=== PATIENT | male | born 1930 | race Caucasian/White ===

== ENCOUNTER 2020-05-28 18:25 | Inpatient (IN) | payer OTHER ==
--- OUTSIDE RECORDS SUMMARY | 2020-05-28 18:27 | XMS REPORT | Clinical Summary ---
:1930 Author Organization [facility] Address [address] [place] [address] Care Team Providers Name Role Phone MD Jayjay Primary Care Provider Allergies No Known Active Allergies Medications Medication Sig Dispensed Refills Start Date End Date Status atorvastatin Take 20 mg by 0 Act chanel (LIPITOR) 20 MG mouth nightly. tablet doxazosin Take 4 mg by 0 Active (CARDURA) 4 MG mouth. tablet warfarin Take 5 mg by 0 Active (COUMADIN) 5 MG mouth daily. tablet allopurinol allopurinol 300 mg tablet 0 Active (ZYLOPRIM) 300 MG Take 1 tablet every day by oral route nightly tablet turmeric-herbal Take 1 capsule by 0 Active complex no.278 mouth 2 (two) 150 mg capsule times a day. oxybutynin XL Take 1 tablet by 30 tablet 0 04/24/2020 Active (DITROPAN-XL) 5 mouth once daily MG 24 hr tablet Toviaz 4 mg Take 1 tablet by 30 tablet 0 05/28/2020 Active tablet extended mouth once daily release 24 hr furosemide Take 40 mg by 0 Disco ntinued (LASIX) 40 mg mouth daily. Pt 0 tablet takes occasionally TOVIAZ 4 mg TAKE 1 TABLET BY 30 tablet 6 04/20/2019 Discontinued tablet extended MOUTH ONCE DAILY 0 release 24 hr acetaminophen-cod Take 1-2 tablets 30 tablet 0 05/31/201905/29 eine (TYLENOL by mouth every 6 9 WITH CODEINE #3) (six) hours as 300-30 mg per needed for tabletIndications moderate pain for : acute pain up to 30 doses .Acute Pain. docusate sodium Take 1 capsule 30 capsule 0 05/31/2019 01 (COLACE) 100 MG (100 mg total) by 9 capsule mouth 2 (two) times a day for 15 days. azithromycin Take 1 tablet 6 tablet 0 01/18/2020 Ex pired (ZITHROMAX) 250 (250 mg total) by 0 MG mouth daily for 4 tabletIndications days. Take first : Pneumonia due 2 tablets to infectious together, then 1 organism, every day until unspecified finished. laterality, unspecified part of lung sulfamethoxazole- Take 1 tablet by 10 tablet 0 03/14/202002/28 trimethoprim mouth 2 (two) 0 (Bactrim DS) times a day for 5 800-160 mg per days. tablet docusate sodium Take 1 capsule 60 capsule 0 03/14/2020 02 (Colace) 100 MG (100 mg total) by 0 capsule mouth 2 (two) times a day for 30 days. oxybutynin XL Take 1 tablet (5 30 tablet 0 03/14/2020 04/13/20 2 (Ditropan XL) 5 mg total) by 0 MG 24 hr tablet mouth daily for 30 days. traMADoL (ULTRAM) Take 1 tablet (50 15 tablet 0 03/14/2020 50 mg mg total) by 0 tabletIndications mouth every 8 : acute pain (eight) hours as needed for moderate pain for up to 7 days .acute pain. Active Problems Problem Noted Date Sebaceous cyst 10/08/2016 Chest pain 09/19/2016 Coronary artery disease involving [place] coronary krishna ry 09/19/2016 Essential hypertension 09/19/2016 Dyslipidemia 09/19/2016 Encounters Date Type Specialty Care Team Description 05/25/2020 Refill Urology Terri Grimaldo MD 04/24/2020 Refill Urology Berna Nicole MD 03/14/2020 Anesthesia Event Urology Zach Mon MD Everitt, Amanda W., OPAL 03/14/2020 Surgery Urology Berna Nicole, CYSTOSCOPY R IGHT RETROGRADE PYEL OGRAM AND RIGHT STENT EXCHANGE 03/14/2020 Hospital Encounter Urology Berna Nicole MD 03/14/2020 Telephone Urology Myrna Kramer MA 03/09/2020 Pre-Admit Testing Pre-Admission Berna Nicole, Pre-op testing Appointment Testing (Primary Dx) 03/09/2020 Travel 03/09/2020 Telephone Urology Berna Nicole MD 03/02/2020 Telephone Consult Urology Berna Nicole, Uretero pelvic junction (UPJ) obstruction, right (Primary Dx); Hydronephrosis of right kidney 02/28/2020 Travel 02/27/2020 Telephone Urology Berna Nicole MD 01/18/2020 Emergency Emergency Tu, Yen-Te Pneumonia due t o infectious organism, unspecified laterality, unspecified part of lung (Primary Dx); Medicine MD Chintan Flank pain 01/18/2020 Travel 05/31/2019 Anesthesia Event Urology Onofre Gallo MD Delaflor-Santaa na, Miriam, NP 05/31/2019 Surgery Urology Berna Nicole, CYSTOSCOPY, RIGHT MD RETROGRADE FIDENCIO OGRAM, RIGHT STENT EXC HANGE 05/31/2019 Hospital Encounter Urology Berna Nicole MD 05/30/2019 Telephone Urology Berna Nicole MD after 05/28/2019 Surgical History Surgery Date Site/Laterality Comments ESOPHAGOGASTRODUODENOSCOPY N/A Proce dure: (EGD) 7 ESOPHAGOGASTRODU ODENOSCOPY (EGD); Surgeon: Elan Menard MD; Lo cation: [facility]; Serv ice: Gastroenterology ; Laterality: N/A; CARDIAC CATHETERIZATION Right Procedur e: Cv selective 7 coronary angiogr aphy; Surgeon: Silver Traylor MD; Location: [facility] Lab Invasive Locatio n; Service: Cardiovascular; Laterality: Right; STENT 06/29/2000 cardiac x 1 - 06/28/20 01 ROTATOR CUFF REPAIR 06/29/2013 Right - 06/28/20 14 CYSTO STENT INSERTION 02/04/2018 Right Procedure: CYSTO RIGHT RGP AND RIGHT STENT INSE RTION; Surgeon: Berna Nicole MD; Location: [facility]; Service: Urology ; Laterality: Right; Medical devices from this surgery are in t he Implants section. CYSTOSCOPY, WITH URETERAL STENT 11/04/19 Right RPG REPLACEMENT 19 CYSTOSCOPY, WITH RETROGRADE 11/03/2018 Right Proc edure: CYSTO, RIGHT PYELOGRAM, WITH ULTRASONIC OR RE TROGRADE PYELOGRAM, RIGHT ELECTROHYDRAULIC LITHOTRIPSY KIMBERLY NT EXCHANGE; Surgeon: Berna Nicole MD; Location: [facility] MAIN OR; Se rvice: Urology; Latera lity: Right; Medical devices from this surgery are in t he Implants section. CYSTOSCOPY, WITH URETERAL STENT Right Procedure: CYSTOSCOPY, RIGHT REPLACEMENT 9 RETROGRADE PYLEO GRAM, RIGHT STENT EXCHANGE; Surgeon: Berna Nicole MD; Location: [facility] MAIN OR; Se rvice: Urology; Latera lity: Right; Medical devices from this surgery are in t he Implants section. COLONOSCOPY 06/29/2011 - 06/28/20 12 CYSTOSCOPY Right Procedure: CYSTO SCOPY RIGHT 0 RETROGRADE PYELO GRAM AND RIGHT STENT EXCHANGE; Surgeon: Berna Nicole MD; Location: [facility] MA[facility] OR; Se rvice: Urology; Latera lity: Right; Medical devices from this surgery are in t he Implants section. Medical History Medical History Date Comments Hypertension Anesthesia nhap/nfhap - all elisabeth th secure Exercises daily light weights and tr eadmill - no cp/sob Anemia resolved since 2016 Coronary artery disease one heart stent - 2000 History of transfusion 08/2016 no reactions Chronic kidney disease Renal insufficiency Peptic ulceration 08/2016 Arthritis mild - in fingers Arrhythmia afib, diagnosed arou nd 2008. Myocardial infarction (HCC) [address] aced Hearing loss Atrial fibrillation (HCC) Social History Tobacco Use Types Packs/Day Years Used Date Never Smoker Smokeless Tobacco: Never Used Alcohol Use Drinks/Week oz/Week Comments No Alcohol Habits Answer Date Recorded How often do you have a drink containing alcohol? Never 01/18/2020 How many drinks containing alcohol do you have on a typical Not asked day when you are drinking? How often do you have six or more drinks on one occasion? No t asked Sex Assigned at Date Recorded Not on file Last Filed Vital Signs Vital Sign Reading Time Taken Comments Blood Pressure 149/67 03/14/2020 12:14 PM CDT Pulse 61 03/14/2020 12:14 PM CDT Temperature 36.4 C (97.6 F) 03/14/2020 12:14 PM CDT Respiratory Rate 18 03/14/2020 12:14 PM CDT Oxygen Saturation 100% 03/14/2020 12:14 PM CDT Inhaled Oxygen Concentration - - Weight 74.8 kg (165 lb) 03/14/2020 8:43 AM CDT Height 172.7 cm (5' 8") 03/14/2020 8:43 AM CDT Body Mass Index 25.09 03/14/2020 8:43 AM CDT Plan of Treatment Health Maintenance Due Date Last Done Comments SHINGLES VACCINES (#1) 09/04/1981 65+ PNEUMOCOCCAL VACCINE (1 of 1 - PPSV23) 09/04/199606/29 INFLUENZA VACCINE 01/28/2020 Implants Implanted Type Area Daily Release And Dupe Printer Device Shelf Model / Identifier Expiration Serial / Date Lot Stent Uretl Filifm Dbl Pigtl 6fr 26cm Tiny Blk - [id number] Surgi ricardo Right: [facility] 09/30/2020 [id number] / Implanted: 02/04/2018 at [facility] (Quantity not on file) Stents N/A / [id number] Stent Uretl Filifm Dbl Pigtl 6fr 26cm Tiny Blk - [id number] Surgi ricardo N/A: [facility] 09/02/2021 [id number] / Implanted: Qty: 1 on 11/03/2018 by Berna Nicole MD at [facility] Stents N/A / [id number] Stent Uretl Filifm Dbl Pigtl 6fr 26cm Tiny Blk - [id number] Surgi ricardo N/A: [facility] 04/04/2022 [id number] / Implanted: Qty: 1 on 05/31/2019 by Berna Nicole MD at [facility] Stents N/A / [id number] Stent Uretl Filifm Dbl Pigtl 6fr 26cm Tiny Blk - [id number] Surgi ricardo Right: [facility] 09/29/2022 [id number] / Implanted: Qty: 1 on 03/14/2020 by Berna Nicole MD at [facility] Stents N/A / [id number] Catheter Uretrl Flxble Tip Open Ended Flexima 5fr 70cm - Log [id number] Urological N/A: [facility] [place] [place] [facility] 04/28/2022 [id number] / Implanted: 05/31/2019 at [facility] (Quantity not on file) Implants or N/A / Sets [id number] Procedures Procedure Name Priority Date/Time Associated Diagnosis Comme nts FL RENAL STENTOGRAM Routine 03/14/2020 11:20 Resu lts for this AM CDT procedure are i n the results section. WI AN ELECTIVE Routine 03/14/2020 10:46 Results f or this SUPRAGLOTTIC AIRWAY AM CDT procedur e are in the results section. CYSTOSCOPY 03/14/2020 10:19 Unspecified AM CDT hydronephrosis Case Notes DR COMING FROM RM 1, EST 30 MINS Special Needs REQ TF SELF, EST 30 MINS ECG PRE/POST OP Routine 03/09/2020 11:33 Pre-op testing Result s for this AM CDT procedure are i n the results section. URINE CULTURE Routine 03/09/2020 11:20 Results fo r this AM CDT procedure are i n the results section. COVID-19 QUALITATIVE Routine 03/09/2020 11:18 Pre-op testing R esults for this PCR AM CDT procedure are i n the results section. ESTIMATED GFR Routine 03/09/2020 11:16 Results fo r this AM CDT procedure are i n the results section. URINALYSIS SCREEN AND Routine 03/09/2020 11:16 Pre-op testing Results for this MICROSCOPY, WITH AM CDT procedure a re in REFLEX TO CULTURE the result s section. PROTHROMBIN TIME WITH Routine 03/09/2020 11:16 Pre-op testing Results for this INR AM CDT procedure are i n the results section. PARTIAL THROMBOPLASTIN Routine 03/09/2020 11:16 Pre-op testing Results for this TIME (PTT) AM CDT procedure are i n the results section. COMPREHENSIVE Routine 03/09/2020 11:16 Pre-op testing Results for this METABOLIC PANEL AM CDT procedure ar e in the results section. HC COMPLETE BLD COUNT Routine 03/09/2020 11:16 Pre-op testing Results for this W/AUTO DIFF AM CDT procedure are i n the results section. URINALYSIS SCREEN AND Routine 01/18/2020 12:45 Re sults for this MICROSCOPY, WITH PM CDT procedure a re in REFLEX TO CULTURE the result s section. URINE CULTURE Routine 01/18/2020 12:45 Results fo r this PM CDT procedure are i n the results section. CT CHEST WO CONTRAST STAT 01/18/2020 10:55 Res ults for this AM CDT procedure are i n the results section. ESTIMATED GFR STAT 01/18/2020 10:12 Results fo r this AM CDT procedure are i n the results section. COMPREHENSIVE STAT 01/18/2020 10:12 Results fo r this METABOLIC PANEL AM CDT procedure ar e in the results section. HC COMPLETE BLD COUNT STAT 01/18/2020 10:12 Re sults for this W/AUTO DIFF AM CDT procedure are i n the results section. CT RENAL STONE STAT 01/18/2020 10:07 Results f or this PROTOCOL AM CDT procedure are i n the results section. FL RENAL STENTOGRAM Routine 05/31/2019 9:30 Resu lts for this AM [facility] procedure are i n the results section. WI AN ELECTIVE Routine 05/31/2019 9:12 Results f or this SUPRAGLOTTIC AIRWAY AM [facility] procedur e are in the results section. 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 after 05/28/2019 Results FL Renal Stentogram (03/14/2020 11:20 AM CDT)Only the most recent of2 results within the time period is included. Specimen Narrative Performed At IMPRESSION: C-arm Fluoroscopy under 1 hour was provi ded in the OR for [facility] the referring physician. A radiologist was not prese nt during the procedure. Refer to the Operative report issued by the performing provider for procedure details. Procedure Note Hm Interface, Radiology Results Incoming - 03/14/2020 3:33 PM CDT IMPRESSION: C-arm Fluoroscopy under 1 h our was provided in the OR for the referring physician. A radiologist was not presen t during the procedure. Refer to the Operative report issued by the performin g provider for procedure details. Performing Organization Address City/State/ZIP Code Phon e Number [facility] [address] [place] [address] Airway (03/14/2020 10:46 AM CDT) Narrative Performed At Camryn Martinez 03/14/2020 10:46 AM Airway Date/Time: 03/14/2020 10:30 AM Performed by: Camryn Martinez Authorized by: Zach Mon MD Location: OR Urgency: Elective Difficult Airway: No Resident/AUTOMATIC BANDSAW TENDER/AA: Camryn Martinez Performed by: resident/AUTOMATIC BANDSAW TENDER/AA Preoxygenated with 100% O2: Yes C-spine Precautions Maintained Throughou t: No Mask Ventilation: Not attempted Final Airway Type: Supraglottic airway Final LMA: I-Gel LMA Size: 5 Number of Attempts at Approach: 1 Patient preoxygenated, eyes taped after induction, iGel 4inserted atraumatically with all soft tissue and dentition inta ct. iGel positioning verified, positive EtCO2, adequate Vt, a nd secured in place with silk tape. ECG Pre/Post Op (03/09/2020 11:33 AM CDT) Pathologist Sig nature Ventricular rate 57 [facility] Atrial rate 80 [facility] QRSD interval 146 [facility] QT interval 500 [facility] QTC interval 486 [facility] QRS axis 1 82 [facility] T wave axis 18 [facility] EKG impression Atrial fibrillation [facility] M[facility] with slow ventricular response-Right bundle branch block-Abnormal ECG-In automated comparison with ECG of 19-MAY-2019 11:49,-No significant change was found- Specimen Narrative Performed At This result has an attachment that is no t available. Performing Organization Address City/[facility]/ZIP Code Phon e Number [facility] [address] [place] [phone] Urine culture (03/09/2020 11:20 AM CDT)Only the most recent of2 resultswithin the time period is included. Pathologist [facility] nature Urine culture SEE COMMENTComment: [facility] Bacteriuria [facility] negative. Specimen Performing Organization Address City/[facility] Phon e Number [facility] DEPARTMENT OF PATHOLOGY AND [address] [place] [phone] GENOMIC MEDICINE [address] [address] COVID-19 qualitative PCR (03/09/2020 11:18 AM CDT) Interpretation Negative results do not prec lude 2019-nCoV infection and should not be used as the sole basis for treatment or other patient management decisions. Negative results must be combined with clinical observations, patient history, and epidemiological [facility]ISCO information. [facility] COVID-19 qualitative Not-Detected Not-Detecte FRISCO PCR result d [facility] COVID-19 qualitative See link below for FRISCO PCR PDF Lab [facility] ReportComment: Case HOSPITAL Number: [id number] Specimen Nasopharyngeal swab Performing Organization Address City/[facility] Phon e Number [facility] DEPARTMENT OF PATHOLOGY AND [address] [phone] [address] [facility] Urinalysis screen and microscopy, with reflex to culture (03/09/2020 11:16 AM CDT)Only the most recent of2 resultswithin the time period is included. Pathologist Sig nature Specimen site Clean catch [facility] Color, UA Straw [facility] Appearance, UA Clear [facility] Specific gravity, 1.014 1.001 - 1.035 [facility] pH, UA 6.0 5.0 - 8.5 [facility] Protein, UA Negative Negative [facility] Glucose, UA Negative Negative [facility] Ketones, UA Negative Negative [facility] Bilirubin, UA Negative Negative [facility] Blood, UA Large (A) Negative [facility] Nitrite, UA Negative Negative [facility] Urobilinogen, UA <2.0 <2.0 [facility] Leukocyte esterase, Negative Negative [facility] WBC, UA 1 0 - 1 /HPF [facility] RBC, UA 70 (H) 0 - 5 /HPF [facility] Bacteria, UA None seen None seen [facility] Yeast, UA None seen [facility] Yeast with None seen [facility] pseudohyphae, UA HOSPITAL Specimen Urine Performing Organization Address City/[facility] Phon e Number [facility] DEPARTMENT OF PATHOLOGY AND [address] [phone] [address] Estimated GFR (03/09/2020 11:16 AM CDT)Only the most recent of2 resultswithin the time period is included. Estimated GFR 25 (A) mL/min/1.73 [facility] Comment: m2 HOSPITAL Catergory Units Interpretation G1 >=90 Normal or high G2 60-89 Mildly decreased G3a 45-59 Mildly to moderately decreas ed G3b 30-44 Moderately to severely decre ased G4 15-29 Severely decreased G5 <15 Kidney failure The eGFR was calculated using the Chronic Kidney Disea se Epidemiology Collaboration (CKD-EPI) equation. Interpretation is based on recommendations of the National Kidney Foundation-Kidney Disease Outcomes Shad lity Initiative (NKF-KDOQI) published in 2014. Specimen Performing Organization Address City/[facility] Phon e Number [facility] DEPARTMENT OF PATHOLOGY AND [address] [place] [address] [phone] [address] Partial thromboplastin time, activated (03/09/2020 11:16 AM CDT) Pathologist [facility] PTT 38.6 (H) 23.0 - 36.0 [facility] Comment: [facility] PTT therapeutic range for unfractionated heparin is 61.0-112.0 seconds which corresponds to Anti-Xa 0.3-0.7 U/ml. Specimen Blood Performing Organization Address [facility] Phon e Number [facility] DEPARTMENT OF PATHOLOGY AND [address] [place] [address] [address] Prothrombin time with INR (03/09/2020 11:16 AM CDT) Pathologist [facility] Prothrombin time 24.4 (H) 11.5 - 14.5 [facility] INR 2.2 [facility] Comment: ROSALIND The International Normalized Ratio (INR) is a therapeu [facility] HOSPITAL monitoring tool for patients who are stable on oral anticoagulant therapy. An INR of 2.0-3.0 is suggested for deep vein thrombosis/pulmonary embolism. Specimen Blood Performing Organization Address City/[facility] Phon e Number [facility] DEPARTMENT OF PATHOLOGY AND [address] [place] [phone] CBC with platelet and differential (03/09/2020 11:16 AM CDT)Only the most recent of2 resultswithin the time period is included. Pathologist [facility] WBC 4.73 4.50 - 11.00 [facility] k/uL [facility] RBC 4.10 (L) 4.40 - 6.00 [facility] m/[facility] HGB 13.3 (L) 14.0 - 18.0 [facility] g/dL [facility] HCT 41.8 41.0 - 51.0 % [facility] MCV 102.0 (H) 82.0 - 100.0 [facility] MCH 32.4 27.0 - 34.0 pg [facility] MCHC 31.8 31.0 - 37.0 [facility] g/dL [facility] RDW - SD 52.6 37.0 - 55.0 fL [facility] MPV 11.8 8.8 - 13.2 [facility] Platelet count 110 (L) 150 - 400 k/uL [facility] Nucleated RBC 0.00 /100 WBC [facility] Neutrophils 69.8 (H) 39.0 - 69.0 % [facility] Lymphocytes 18.2 (L) 25.0 - 45.0 % [facility] Monocytes 7.0 0.0 - 10.0 % [facility] Eosinophils 3.8 0.0 - 5.0 % [facility] Basophils 0.8 0.0 - 1.0 % [facility] Immature granulocytes 0.4Comment: 0.0 - 1.0 % [facility] "[facility] granulocytes" (promyelocytes , myelocytes, metamyelocytes ) Specimen Blood Performing Organization Address City/State/[facility] Code Phon e Number [facility] DEPARTMENT OF PATHOLOGY AND [address], [place] [phone] GENOMIC MEDICINE [address] [address] Comprehensive metabolic panel (03/09/2020 11:16 AM CDT)Only the most recent of2 resultswithin the time period is included. Sodium 141 135 - 148 [facility] mEq/L [facility] Potassium 5.2 (H) 3.5 - 5.0 [facility] mEq/L [facility] Chloride 105 98 - 112 [facility] mEq/L [facility] CO2 24 24 - 31 mEq/L [facility] Anion gap 12@ANIO 7 - 15 mEq/L [facility] BUN 39 (H) 8 - 23 mg/dL [facility] Creatinine 2.24 (H) 0.70 - 1.20 [facility] mg/dL [facility] Glucose 100 (H) 65 - 99 mg/dL [facility] Calcium 9.3 8.8 - 10.2 [facility] mg/dL [facility] Protein 7.3 6.3 - 8.3 [facility] Comment: g/dL [facility] [place] 4.6-7.0 g/dL 1 week 4.4-7.6 g/dL 7 months-1year 5.1-7.3 g/dL 1-2 years 5.6-7.5 g/dL >3 years 6.0-8.0 g/dL 18-150 6.3-8.3 g/dL Albumin 4.1 3.5 - 5.0 [facility] g/dL HOSPITAL A/G ratio 1.3 0.7 - 3.8 [facility] Alkaline phosphatase 115 40 - 129 U/L [facility] AST 47 10 - 50 U/L [facility] ALT 43 5 - 50 U/L [facility] Total bilirubin 0.8 0.0 - 1.2 [facility] mg/dL HOSPITAL Specimen Blood Performing Organization Address City/State/ZIP Code Phon e Number [facility] DEPARTMENT OF PATHOLOGY AND [address], [place] [phone] GENOMIC MEDICINE [facility] [address] [place] [address] CT Chest Wo Contrast (01/18/2020 10:55 AM CDT) Specimen Narrative Performed At EXAMINATION: CT CHEST WO CONTRAST [facility] CLINICAL HISTORY: sob TECHNIQUE: Axial images of the chest were obtained w ithout intravenous contrast. The lack of intravenous contrast reduces the sensitivity of the exam and evaluating vasculature. CT imaging was pe rformed with iterative reconstruction technique and/o r automated exposure control to reduce rad iation dose. COMPARISON: Limited comparison with chest radiograph from May 19, 2019 FINDINGS: Lungs and airways: There is airspace disease in the ri ght lower lobe. Minimal scarring with a few foci of cylindrical bronch iectasis in the lower lungs. A few benign granulomas are noted. Pleura: There may be trace right pleural fluid adjacen t to the airspace disease. No pneumothorax. Mediastinum and lymph nodes: Prominent mediastinal and hilar lymph nodes, for example subcarinal node measuring up to 1.2 cm, favored to be reactive. Cardiovascular: Four-chamber cardiomegaly. Heavy coron marko artery and additional scattered vascular calcifications, includin g mitral annular and aortic valve leaflets. Upper abdomen: Calcified hepatic and spl enic granulomas. Musculoskeletal: Spondylosis. Deminerali zed bones. IMPRESSION: 1.Right lower lobe airspace disease, compatible with p neumonia. This distribution is atypical for COVID-19 pneumonia, and m ore typical of community acquired bacterial pneumonia. 2.Four-chamber cardiomegaly. Heavy coron marko artery calcifications. [facility]-[id number] Procedure Note Interface, Radiology Results Incoming - 01/18/2020 11:32 AM CDT EXAMINATION: CT CHEST WO CONTRAST CLINICAL HISTORY: sob TECHNIQUE: Axial images of the chest we re obtained without intravenous contrast. The lack of intravenous contrast reduces the sensitivity of the exam and evaluating vasculature. CT imaging was performed with iterative reconstruction technique and/or automated exposure control to reduce rad iation dose. COMPARISON: Limited comparison with [facility] radiograph from May 19, 2019 FINDINGS: Lungs and airways: There is airspace dis ease in the right lower lobe. Minimal scarring with a few foci of cylindrical bronchiectasis in the lower lungs. A few benign granulomas are noted. Pleura: There may be trace right pleural fluid adjacent to the airspace disease. No pneumothorax. Mediastinum and lymph nodes: Prominent m ediastinal and hilar lymph nodes, for example subcarinal node measuring up to 1.2 cm, favored to be reactive. Cardiovascular: Four-chamber cardiomegal y. Heavy coronary artery and additional scattered vascular calcifications, including mitral annular and aortic valve leaflets. Upper abdomen: Calcified hepatic and spl enic granulomas. Musculoskeletal: Spondylosis. Deminerali zed bones. IMPRESSION: 1.Right lower lobe airspace disease, com patible with pneumonia. This distribution is atypical for COVID-19 pneumonia, and more typical of community acquired bacterial pneumonia. 2.Four-chamber cardiomegaly. Heavy coron marko artery calcifications. [id number] Performing Organization Address City/State/ZIP Code Phon e Number [facility] [address] [place] [address] CT Renal Stone Protocol (01/18/2020 10:07 AM CDT) Specimen Narrative Performed At EXAMINATION: [facility]: flank pain COMPARISON: 01/11/2018. TECHNIQUE: CT of the abdomen and pelvis without intr avenous contrast. Absence of contrast decreases sensitivity for detectio n of focal lesions and vascular pathology. All CT scan performed using radiation dose reduction t echniques. Technical factors are evaluated and adjusted to ensure appropriate moderation of exposure. Automated dose feed management advisor nology is applied to adjust the radiation dose to minimize expose while achieving a diagnostic quality i mage. FINDINGS: LUNG BASES: Bibasilar posterior subpleural consolidati on with surrounding groundglass opacity is seen. HEPATOBILIARY: Limited evaluation of the liver is unre markable. No intrahepatic biliary dilatation is seen. GALLBLADDER: No gallstones are seen. No wall thickenin g or pericholecystic fluid collection is iden tified. SPLEEN: Limited nonenhanced evaluation of the spleen i s unremarkable. No splenomegaly. PANCREAS: Limited nonenhanced evaluation of the pancre as is unremarkable. No ductal dilation is se en. ADRENALS: The adrenal glands are unremar kable. KIDNEYS: A right double-J ureteral stent is seen, new when compared to prior study. Mild residual right hydronephrosis is pre sent, markedly improved in the interim. No renal calculus is seen. Th ere is no evidence of left hydronephrosis. Limited nonenhanced evaluation of the kidneys ot herwise unremarkable. PERITONEUM/RETROPERITONEUM: No mesenteric or retroperi toneal pathologic adenopathy is seen. No free air is seen. GI TRACT: The small bowel demonstrates no wall thicken ing or dilatation. Scattered diverticula are seen predominantly the sigmo id colon. The colon is otherwise unremarkable. No wall thickening is identified. There is no evidence of inflammatory process. Appendix is not seen.. No right low quadrant inflammat ion is seen. The stomach is unremarkable. BONES: An approximately 6 mm degenerative anterolisthe sis L4 on L5 is again noted. VASCULATURE: Scattered atherosclerotic disease is seen of the abdominal aorta. PELVIS: BLADDER: The urinary bladder is unremark able. GENITALIA: Limited evaluation of the prostate gland an d seminal vesicle is unremarkable. . FLUID: None. IMPRESSION: Satisfactory right double-J ureteral stent placement w ith mild residual right hydronephrosis, markedly improved in the interim. No CT evidence of renal calculus. Mild diverticulosis without evidence of acute divertic ulitis. No CT evidence of gastroenteritis or small bow el obstruction. Incidental note of right basilar subpleural consolidat ion and groundglass opacity, suggestive of pneumonia/pneumonit is. Aspiration pneumonia is also a consideration. Recom mend clinical correlation. [id number] Procedure Note Hm Interface, Radiology Results Incoming - 01/18/2020 10:25 AM CDT EXAMINATION: CT RENAL STONE PROTOCOL CLINICAL HISTORY: flank pain COMPARISON: 01/11/2018. TECHNIQUE: CT of the abdomen and pelvis without intravenous contrast. Absence of contrast decreases sensitivity for detection of focal lesions and vascular pathology. All CT scan performed using radiation do se reduction techniques. Technical factors are evaluated and adjusted to ensure appropriate moderation of exposure. Automated dose management technology is applied to adjust the radiation dose to minimize expose while achieving a diagnostic quality im age. FINDINGS: LUNG BASES: Bibasilar posterior subpleur al consolidation with surrounding groundglass opacity is seen. HEPATOBILIARY: Limited evaluation of the liver is unremarkable. No intrahepatic biliary dilatation is seen. GALLBLADDER: No gallstones are seen. No wall thickening or pericholecystic fluid collection is identified. SPLEEN: Limited nonenhanced evaluation o f the spleen is unremarkable. No splenomegaly. PANCREAS: Limited nonenhanced evaluation of the pancreas is unremarkable. No ductal dilation is seen. ADRENALS: The adrenal glands are unremar kable. KIDNEYS: A right double-J ureteral stent is seen, new when compared to prior study. Mild residual right hydronephrosis is present, markedly improved in the interim. No renal calculus is seen. There is no evidence of left hydronephrosis. Limited nonenhanced evaluation of the kidneys ot herwise unremarkable. PERITONEUM/RETROPERITONEUM: No mesenteri c or retroperitoneal pathologic adenopathy is seen. No free air is seen. GI TRACT: The small bowel demonstrates n o wall thickening or dilatation. Scattered diverticula are seen predominantly the sigmoid colon. The colon is otherwise unremarkable. No wall thickening is identified. There is no evidence of inflammatory process. Appendix is not seen.. No right low quad rant inflammation is seen. The stomach is unremarkable. BONES: An approximately 6 mm degenerativ e anterolisthesis L4 on L5 is again noted. VASCULATURE: Scattered atherosclerotic d isease is seen of the abdominal aorta. PELVIS: BLADDER: The urinary bladder is unremark able. GENITALIA: Limited evaluation of the [place] gland and seminal vesicle is unremarkable. . FLUID: None. IMPRESSION: Satisfactory right double-J ureteral kimberly nt placement with mild residual right hydronephrosis, markedly improved in the interim. No CT evidence of renal calculus. Mild diverticulosis without evidence of acute diverticulitis. No CT evidence of gastroenteritis or small bowel obstruction. Incidental note of right basilar subpleu ral consolidation and groundglass opacity, suggestive of pneumonia/pneumonitis. Aspiration pneumonia is also a consideration. Recommend clinical correlation. [id number] Performing Organization Address City/State/ZIP Code Phon e Number [facility] [address] [place] [address] Airway (05/31/2019 9:12 AM SPONGE BUFFER) Narrative Performed At Jess Tejeda CRNA 05/31/2019 9:12 AM Airway Date/Time: 05/31/2019 9:12 AM Performed by: Jess Tejeda CRNA Authorized by: Onofre Gallo MD Location: OR Urgency: Elective Difficult Airway: No Preoxygenated with 100% O2: Yes C-spine Precautions Maintained Throughou t: Yes Mask Ventilation: Not attempted Final Airway Type: Supraglottic airway Final LMA: I-Gel LMA Size: 5 Number of Attempts at Approach: 1 iGel #5 placed by ER Resident Good. [employer] Prothrombin time with INR, I-Stat (05/31/2019 8:01 AM SPONGE BUFFER) POC prothrombin 17.3 (H) 11.0 - 14.5 FRISCO time [facility] POC INR 1.5 FRISCO Comment: [facility] International Normalized Ratio (INR) is a [facility] monitoring tool for patients who are stable on oral vitamin K antagonist therapy. An INR of 2.0-3.0 is sug gested for deep vein thrombosis/pulmonary embolism. An INR of 2.5-3.5 (high dose) is suggested for some pa tients with mechanical heart valves) Meter ID: [id number] Mental Health Associate: Charissa Contreras Specimen Blood Performing Organization Address City/State/ZIP Code Phon e Number [facility] DEPARTMENT OF PATHOLOGY AND [address] [place], [place] [address] [facility] [address] [place] [address] after 05/28/2019 Advance Directives For more information, please contact: [phone] Type Date Recorded Patient News Broadcaster Explanati on Advance Directives, 01/11/2018 7:19 AM Living Will and Medical Power of Chemist [employer] Advance Directives, 02/09/2018 12:10 PM Living Will and Medical Power of Chemist [employer] Advance Directives, 02/09/2018 12:10 PM Living Will and Medical Power of [employer]ist [employer] Code Status Date Activated Date Inactivated Comments Full Code 09/19/2016 10:32 PM 09/25/2016 9:26 PM Code Status decision reached by: Patient
--- OUTSIDE RECORDS SUMMARY | 2020-05-28 18:28 | XMS REPORT | Summary of Care ---
:1930 Author Organization [facility] - Health Address [address] [place] [address] Care Team Providers Name Role Phone MD Jayjay Primary Care Provider Encounter Details Date Type Department Care Team Description 04/09/2020 Orders Only [facility] Doctor Unassigned, No [address] [facility] [place] [address] [address] [place] [address] Allergies No Known Allergiesdocumented as of this encounter (statuses as of 04/09/2020) Medications No known medicationsdocumented as of this encounter (statuses as of 04/09/2020) Active Problems Problem Noted Date Chest pain 09/19/2016 GI bleed 09/15/2016 documented as of this encounter (statuses as of 04/09/2020) Social History Tobacco Use Types Packs/Day Years Used Date Never Smoker Smokeless Tobacco: Never Used Sex Assigned at Date Recorded Not on file documented as of this encounter Last Filed Vital Signs Not on filedocumented in this encounter Plan of Treatment Date Type Specialty Care Team Description 04/09/2020 Fire Pot Operator Visit Phlebotomy Pob, [facility] Lab Main documented as of this encounter Procedures Procedure Name Priority Date/Time Associated Diagnosis Comme nts ASSIGNMENT OF BENEFITS Routine 04/09/2020 8:36 AM CDT documented in this encounter Results Not on filedocumented in this encounter Insurance Payer Benefit Plan / Subscriber ID Effective Dates Phone Addre ss Type Group SELECT CARE OF SELECT [place]ARE OF [id number] 2015-[place]se [place] [id number] 2019-Presen Medicare Adv PLUS PLUS CHOICE t HMO/POS documented as of this encounter
--- OUTSIDE RECORDS SUMMARY | 2020-05-28 18:28 | XMS REPORT | Summary of Care ---
:1930 Author Organization [facility] Address [address] [place] [id number] Care Team Providers Name Role Phone MD Jayjay Primary Care Provider Reason for Visit Reason Comments LAB WORK Auth/Cert Status Reason Specialty Diagnoses / Procedures Referred By Lauri booth Referred To Contact Phlebotomy Procedures Adc Pob Lab Draw CMP Professional O ffice Building [address] [place] [address] eliana [address], [address] [place] [address] Phone: Fax: Encounter Details Date Type Department Care Team Description 04/09/2020 Laboratory Tester Visit [facility] Wilfred Hampton, DO [address] [place] [address] Chronic kidney disease, stage IV (severe ) (Primary Dx); Professional Office Pob, Adc Lab Main Other proteinuria; Building Phlebotomy Acidosis ; Lab Hyperpotassemia; Professional Office Renal hy pertension; Building Impaired fasting glucose; [address] [facility] [address] [place] [address] Allergies No Known Allergiesdocumented as of this [...] Assigned at Date Recorded Not on file COVID-19 Exposure Response Date Recorded In the last month, have you been in contact with No / Unsure 04/09/2020 8:38 AM CDT someone who was confirmed or suspected to have Coronavirus / COVID-19? documented as of this encounter Last Filed Vital Signs Not on filedocumented in this encounter Nursing Notes Alix Be - 04/09/2020 8:45 AM CDT Venipuncture collection performed by clean technique on the left anticubitus. Total of 1 attempts were made. Slight pressure and a bandage/dressing were applied to the site(s). The patient experienced no complications. The following specimens were processed according to instructions and sent to [facility] laboratories per lab order on today: LT BLUE SST 1 RED LAV 2 PPT DK GREEN (LiHep) DK GREEN (SodH) [place] DK BLUE (K2) DK BLUE (S) ACD Blood Culture NIPT/NTD Patient has been identified by and name and was provided with cup, antiseptic towelette, and clean catch instructions. 2 urine specimen(s) sent. Unpreserved 2 Urine Culture Aptima tube Other urine documented in this encounter Plan of Treatment Name Type Priority Associated Diagnoses Date/Ti me MICROALBUMIN URINE LAB Routine Chronic kidney disease , 04/09/2020 8:54 AM CDT stage IV (severe ) Other proteinuri a Acidosis Hyperpotassemia Renal hypertensi on Impaired fasting glucose Avitaminosis D Name Type Priority Associated Diagnoses Order S chedule MICROALBUMIN URINE LAB Routine Chronic kidney disease , Expected: 04/09/2020, stage IV (severe ) Expires: 04/09/2021 Other proteinuri a Acidosis Hyperpotassemia Renal hypertensi on Impaired fasting glucose Avitaminosis D Health Maintenance Due Date Last Done Comments Depression Screening 1942 DTaP,Tdap,and Td Vaccines (1 - Tdap) 09/04/1950 Zoster Recombinant Vaccine (SHINGRIX) (1 of 2) 09/04/1981 PNEUMOCOCCAL VACCINES 65+ (1 of 1 - PPSV23) 09/04/1996 INFLUENZA VACCINE (#1) 2020 documented as of this encounter Procedures Procedure Name Priority Date/Time Associated Comments Diagnosis URINALYSIS Routine 04/09/2020 8:54 Chronic kidney Results f or this AM CDT disease, stage IV procedure are in (severe) the results Other proteinuri a section. Acidosis Hyperpotassemia Renal hypertensi on Impaired fasting glucose Avitaminosis D GLYCOSYLATED Routine 04/09/2020 8:54 Chronic kidney Results f or this HEMOGLOBIN (A1C) AM CDT disease, stage IV proced ure are in (severe) the results Other proteinuri a section. Acidosis Hyperpotassemia Renal hypertensi on Impaired fasting glucose Avitaminosis D CBC WITH DIFF Routine 04/09/2020 8:54 Chronic kidney Results for this AM CDT disease, stage IV procedure are in (severe) the results Other proteinuri a section. Acidosis Hyperpotassemia Renal hypertensi on Impaired fasting glucose Avitaminosis D COMP. METABOLIC PANEL Routine 04/09/2020 8:54 Chronic kidney Results for this (22611) AM CDT disease, stage IV procedure are in (severe) the results Other proteinuri a section. Acidosis Hyperpotassemia Renal hypertensi on Impaired fasting glucose Avitaminosis D MAGNESIUM Routine 04/09/2020 8:54 Chronic kidney Results f or this AM CDT disease, stage IV procedure are in (severe) the results Other proteinuri a section. Acidosis Hyperpotassemia Renal hypertensi on Impaired fasting glucose Avitaminosis D URIC ACID Routine 04/09/2020 8:54 Chronic kidney Results f or this AM CDT disease, stage IV procedure are in (severe) the results Other proteinuri a section. Acidosis Hyperpotassemia Renal hypertensi on Impaired fasting glucose Avitaminosis D PHOSPHORUS Routine 04/09/2020 8:54 Chronic kidney Results f or this AM CDT disease, stage IV procedure are in (severe) the results Other proteinuri a section. Acidosis Hyperpotassemia Renal hypertensi on Impaired fasting glucose Avitaminosis D documented in this encounter Results URINALYSIS (04/09/2020 8:54 AM CDT) Pathologist Sig nature APPEARANCE Hazy (A) Clear [facility] COLOR Yellow Yellow [facility] PH 5.0 4.8 - 8.0 [facility] SP GRAVITY 1.015 1.003 - 1.030 [facility] GLU U QUAL Normal Normal [facility] BLOOD 3+ (A) Negative [facility] KETONES Negative Negative [facility] PROTEIN 30 mg/dL (A) Negative [facility] UROBILIN Normal Normal [facility] BILIRUBIN Negative Negative [facility] NITRITE Negative Negative [facility] LEUK SUSHIL 250/uL (A) Negative [facility] RBC/HPF >182 (H) 0 - [address] [facility] WBC/HPF 10 (H) 0 - [address] [facility] BACTERIA Few (A) Negative [facility] MUCOUS Slight (A) Negative LPF [facility] SQ EPITH <[address] [facility] Specimen Urine - URINE, CLEAN CATCH Performing Organization Address [facility] Phone Number [facility] CLIA: [id number] [place] [address] URIC ACID (04/09/2020 8:54 AM CDT) Pathologist Sig nature URIC ACID 7.4 3.6 - 8.0 mg/dL [facility] Specimen Blood Performing Organization Address [facility] Phone Number [facility] CLIA: [id number] [place] [address] PHOSPHORUS (04/09/2020 8:54 AM CDT) Pathologist Sig nature PHOSPHORUS 3.3 2.5 - 5.0 mg/dL [facility] Specimen Blood Performing Organization Address [facility] Phone Number [facility] CLIA: [id number] [place] [address] MAGNESIUM (04/09/2020 8:54 AM CDT) Pathologist Sig nature MAGNESIUM 1.9 1.7 - 2.4 mg/dL [facility] Specimen Blood Performing Organization Address [facility] Phone Number [facility] CLIA: [id number] [place], [place] [address] LABORATORY [address] GLYCOSYLATED HEMOGLOBIN (A1C) (04/09/2020 8:54 AM CDT) Pathologist Sig nature HGB A1C 5.4 4.0 - 6.0 % [facility] Specimen Blood Narrative Performed At %A1C (NGSP) Interpretation (ADA) [facility] 4.8-5.6 Normal or (Non-Diabetic Ra nge) 5.7-6.4 Increased Risk (Pre-Diabet ic) >6.5 Diabetes Indicated Performing Organization Address City/State/Zipcode Phone Number [facility] CLIA: [id number] [place] [address] COMP. METABOLIC PANEL (88456) (04/09/2020 8:54 AM CDT) NA 140 135 - 145 [facility] mmol/L [facility] K 4.6 3.5 - 5.0 [facility] mmol/L [facility] CL 107 98 - 108 mmol/L [facility] CO2 TOTAL 23 23 - 31 mmol/L [facility] AGAP 10 2 - 16 [facility] BUN 50 (H) 7 - 23 mg/dL [facility] GLUCOSE 96 70 - 110 mg/dL [facility] CREATININE 2.22 (H) 0.60 - 1.25 [facility] mg/dL [facility] TOTAL BILI 0.8 0.1 - 1.1 mg/dL [facility] CALCIUM 9.3 8.6 - 10.6 [facility] mg/dL [facility] T PROTEIN 6.4 6.3 - 8.2 g/dL [facility] ALBUMIN 3.9 3.5 - 5.0 g/dL [facility] ALK PHOS 91 34 - 122 U/L [facility] ALTv 38 5 - 50 U/L [facility] AST(SGOT) 45 (H) 13 - 40 U/L [facility] eGFR Calculation 28.1 mL/min/1.73m2 [facility] ([facility] LAB[facility]AT[facility] Tanz[place]) eGFR Calculation 34.1 mL/min/1.73m2 [facility] () [facility] Specimen Blood Narrative Performed At [facility] Glomer[facility] Fil[facility] ([facility] and Staging of Kidney Disease* + + +- + | GFR (mL/min/1.73 m2) | With Kidney Damage | Without Kidney Damage + + +- + | >90 | Stage one | Normal + + +- + | 60-89 | Stage two | Decreased GFR + + +- + | 30-59 | Stage three | Stage three + + +- + | 15-29 | Stage four | Stage four + + +- + | <15 (or dialysis) | Stage five | Stage five + + +- + *Each stage assumes the associated GFR level has been in effect for at least three months. Stages 1 to 5, with or without kidney disease, indicate chronic kidney disease. Notes: Determination of stages one and two (with eGFR >59mL/min/1.73 m2) requires estimation of kidney damage for at least three months as defined by structural or functional abnormalities of the kidney, manifested by either: Pathological abnormalities or Markers of kidney damage (including abnormalities in the composition of the blood or urine or abnormalities in imaging tests). Performing Organization Address City/State/Zipcode Phone Number [facility] CLIA: [id number] [place] [address] CBC WITH DIFF (04/09/2020 8:54 AM CDT) WBC 3.70 (L) 4.20 - 10.70 [facility] 10*3/L [facility] RBC 3.90 (L) 4.26 - 5.52 [facility] 10*6/L [facility] HGB 12.8 12.2 - 16.4 [facility] g/dL [facility] HCT 39.5 38.4 - 49.3 % [facility] MCV 101.3 (H) 81.7 - 95.6 [facility] LABORATORY MCH 32.8 (H) 26.1 - 32.7 [facility] LABORATORY MCHC 32.4 31.2 - 35.0 [facility] g/dL [facility] RDW-SD 52.4 (H) 38.5 - 51.6 [facility] LABORATORY RDW-CV 14.0 12.1 - 15.4 % [facility] PLT 123 (L) 150 - 328 [facility] 10*3/L [facility] MPV 11.4 9.8 - 13.0 [facility] LABORATORY IPF % 5.1Comment: Platelet 1.2 - 10.7 % [facility] count measured by HOSPITAL fluorescence method. LABORATORY NRBC/100 WBC 0.0 0.0 - 10.0 [facility] /100 WBCs [facility] NRBC x10^3 <0.01 10*3/L [facility] GRAN MAT (NEUT) % 60.2 % [facility] IMM GRAN % 0.00 % [facility] LYMPH % 24.1 % [facility] MONO % 9.2 % [facility] EOS % 5.4 % [facility] BASO % 1.1 % [facility] GRAN MAT 2.23 1.99 - 6.95 [facility] x10^3(ANC) 10*3/uL [facility] IMM GRAN x10^3 <0.03 0.00 - 0.06 [facility] 10*3/uL [facility] LYMPH x10^3 0.89 (L) 1.09 - 3.23 [facility] 10*3/uL [facility] MONO x10^3 0.34 (L) 0.36 - 1.02 [facility] 10*3/uL [facility] EOS x10^3 0.20 0.06 - 0.53 [facility] 10*3/uL [facility] BASO x10^3 0.04 0.01 - 0.09 [facility] 10*3/uL [facility] Specimen Blood Performing Organization Address City/State/Zipcode Phone Number [facility] CLIA: [id number] [place] [address] documented in this encounter Visit Diagnoses Diagnosis Chronic kidney disease, stage IV (severe ) - Primary Chronic kidney disease, Stage IV (severe ) Other proteinuria Acidosis Hyperpotassemia Renal hypertension Unspecified hypertensive kidney disease with chronic kidney disease stage I through stage IV, or unspecified Impaired fasting glucose Avitaminosis D Unspecified vitamin D deficiency documented in this encounter Insurance Payer Benefit Plan / Subscriber ID Effective Dates Phone Addre ss Type Group JOSH FIELD [id number] 2019-Presen Medicare Adv PLUS PLUS CHOICE t HMO/POS documented as of this encounter"
--- OUTSIDE RECORDS SUMMARY | 2020-05-28 18:28 | XMS REPORT | Encounter Summary ---
:1930 Author Care Team Providers Name Role Phone Dr. Francisco J Ro Primary Care Provider [phone] Marium Traylor MD Primary Care Provider [phone] Reason for Visit TELE-AWV Annual Wellness Visit Male Instructions 1. Advance directive discussed w ith patient advance care planning: car e instructions 2. Depression screening learning about depression 3. Chronic kidney disease stage 4 medicines to avoid with ki cameroney disease: care instructions 4. Coronary atherosclerosis 5. Atrial fibrillation 6. Gout 7. Hypercholesterolemia Discussion Note Patient denies any acute issues at this time. Patient report he see his docotrs frequently and takes his meds daily. Lif estyle modifcation discussed with patient, patient verbalized understanding. Plan of Care Patient Instructions It was good to speak with you eladia hidalgo today for your Medicare Annual Wellness Visit. You have been provided some information on healthy nutrition, including a diet rich in fruits and vegetables, minimizing simple carbohydrates, salt, and saturated fats. I want to encourage regular card iovascular exercise such as walking at [place] 30 minutes daily, 5 times per week. Please remember to schedule any prevent chanel health measures that we talked about today. You have also been provided education on fall prevention and community- based lifestyle interventions to help reduc e health risks and promote healthy livin g in your Annual Wellness folder. Screening Recommendations 1. Vaccines Pneumonia: Recommended toda y Influenza: Recommended today 2. Colorectal Cancer Screening: Colonoscopy (every 10 years) Recommended today 3. Annual Prostate Screening 4. Annual Depression Sc reening 5. Annual Alcohol Screening 6. A nnual Fall Risk Screening 7. Annual Health Risk Assessment Reminders Provider Appointments Telemedicine on or around Vannesa 09/20/2020 HALLEI Robbins Lab None recorded. Referral None recorded. Procedures None recorded. Surgeries None recorded. Imaging None recorded. Medications Name Start Date allopurinol 100 mg tablet Take 1 tablet every day by oral route. atorvastatin 40 mg tablet Take 1 tablet every day by oral route. doxazosin 4 mg tablet Take 1 tablet twice a day by oral route. Toviaz 4 mg tablet,extended release Take 1 tablet as needed by oral route. warfarin 2 mg tablet Take 1 tablet every day by oral route. warfarin 3 mg tablet Take 1 tablet every day by oral route. Medications Administered None recorded. Vitals Height Weight BMI 5 ft 8 in 165 lbs 25.1 kg/m2 Results Lab Results None recorded. Allergies Code Code System Name Reaction Severity Status Onset NKDA Problems Name Status Onset Date Source Hypercholesterolemia Active 05/29/2019 Gout Active 05/29/2019 Coronary Atherosclerosis Active 05/29/2019 Atrial Fibrillation Active 05/29/2019 Procedures None recorded. Vaccine List Vaccine Type influenza, injectable, quadrivalent 06/29/2018 pneumococcal, unspecified formulation 06/29/2018 zoster, unspecified formulation 06/29/2018 Social History Tobacco Smoking Status Never Smoker Past Encounters 03/23/2020 Advance Directive Discussed with Patient ; Depression Screening; Chronic Kidney Disease Stage 4; Coronary Atherosclerosis; Atrial Fibrillation; Gout; Hypercholesterolemia Vannesa Robbins, [employer] PROJECT MANAGER: [id number] [facility], [address], [place] [address], Ph. History of Present Illness Atrial Fibrillation Reported By: Patient HPI: Severity: mild. Alleviating Factors: medication. Aggravating Factors: worse with stress/emotional upset. Associated Symptoms: no awareness of palpitation, no dyspnea, no fatigue, no chest discomfort, no associated dizziness Stroke Risk: CHADS(2) Score: age >= 75 ye ars (1 point), CHADS(2) score is:1. [id number] Score: age >= 7 5 years (2 point), female sex (1 point), [id number] score total: 3 Mini Cog Reported By: Patient Functional Ability: Personal/Social/ 3 word reca ll: Your nurse or doctor will ask you to remember 3 words. In 5 m inutes, they will ask you to repeat them. Patient recalled 3 w ords Carotid Artery Disease Reported By: Patient HPI: Symptoms: asymptomatic, no s udden loss of vision in one eye, no transient ischemic attack, n o reversible ischemic neurologic deficit. Severity: mild. Context: non -smoker, no diabetes, no hypertension, anticoagulants Hyperlipidemia Reported By: Patient HPI: Type of hyperlipidemia: hype rcholesterolemia. Control: improving. Compliance: compliant. Compl ications: coronary artery disease, cardiovascular disease Opioid Use Assessment Reported By: Patient Opioid Use Assessment:: Current Use of Opioids : no use of opioids (no further questions required) Note: I confirm that I received verbal consent from the patient for the virtual visit.
This telemedicine encounter was performed using live {{video and audio|audio only because either patient did not have technology or unable to connect due to technical problems*}}.
<strong>(for a udio only)</strong> Total time spent with patient: {{50#| }} minutes.<div>AFib</div&gt ;<div>CAD</div><div>Gout</div><div>
</ div> Review of Systems Comprehensive General Adult ROS Reported By: Patient Constitutional: Constitutional: no fever, no night sweats, no significant weight gain, no significant weight loss, no exercise intolerance Eyes: Eyes: no dry eyes, no vision change, no irritation ENMT: Ears: no difficulty hearing, no ear pain. Nose: no frequent nosebleeds, no nose problems , no sinus problems. Mouth/Throat: no sore throat, no bleeding gums, no snoring, no dry mouth, no mouth ulcers, no oral abnorm alities, no teeth problems Cardiovascular: Cardiovascular: no chest efren n, no arm pain on exertion, no shortness of breath when wal jody, no shortness of breath when lying down, no palpitations, no known heart murmur, no lightheadedness Respiratory: Respiratory: no cough, no wh eezing, no shortness of breath, no coughing up blood, no sleep apnea Gastrointestinal: Gastrointestinal: no abdomin al pain, no nausea, no vomiting, no constipation, normal appe tite, no diarrhea, not vomiting blood, no dyspepsia, no GERD Genitourinary: Genitourinary: no incontinen ce, no difficulty urinating, no hematuria, no increased freq uency Musculoskeletal: Musculoskeletal: no muscle a ches, no muscle weakness, no arthralgias/joint pain, no b ack pain, no swelling in the extremities Integumentary: Skin: no abnormal mole, no j aundice, no rashes, no laceration Neurologic: Neurologic: no loss of consc iousness, no weakness, no numbness, no seizures, no di zziness, no migraines, no headaches, no tremor Psychiatric: Psych: no depression, no sle ep disturbances, feeling safe in a relationship, no alcohol abu se, no anxiety, no hallucinations, no suicidal thoughts Endocrine: Endocrine: no fatigue Hematologic/Lymphatic: Hematologic/Lymphatic no swo llen glands, no bruising, no excessive bleeding Allergic/Immunologic: Allergy/Immunologic: no runn y nose, no sinus pressure, no itching, no hives, no freque nt sneezing Physical Exam Telemedicine/Virtual Visit Reported By: Patient Constitutional: Level of Distress: NAD Psychiatric: Insight: good judgement. Men eliana Status: active and alert, normal mood, normal affect. Orienta tion: to time, to place, to person. Memory: recent memory normal , remote memory normal"
--- OUTSIDE RECORDS SUMMARY | 2020-05-28 18:28 | XMS REPORT | Continuity of Care Document ---
:1930 Author Organization [facility] t Address [address] [place] [address] Dr. [address] [place] [address] Care Team Providers Name Role Phone Jayjay HERRERA Primary Care Physician Re HERRERA Attending Clinician Ty HERRERA Attending Clinician Pob, Lab Main Attending Clinician Unavailable Joaquim Mon MD Attending Clinician Esther Chaney APRN Attending Clinician Williams OLIVERA Attending Clinician Unavailable Chintan Bradshaw MD Attending Clinician Mat Gallo MD Attending Clinician Karissa STERLING Attending Clinician TY Admitting Clinician Unavailable Payers Payer Name Policy Type Policy Effective Expiration Source Number Date Date TEXANPLUSTEXANPLUS [id number] 2018 Galenavis campoverde [id number] 2018-Pre 00:00:00 M ethodist sentHMO Problems Condition Condition Condition Status Onset Resolution Last Treating Co mments Source Name Details Category Date Date Treatment Clinician Date Hyperchole Hyperchole Problem Active 2018-06 [facility] sterolemia sterolemia 07-30 [facility] 00:00: Practic 00 e Gout Gout Problem Active 2018-06 [place] 2- Family 00:00: Practic 00 e Coronary Coronary Problem Active 2018-06 Werner ge atheroscle Atheroscle 2 [facility] rosis rosis 00:00: Practic 00 e Atrial Atrial Problem Active 2018-06 [facility] fibrillati Fibrillati 2 [facility] on on 00:00: 00 e Sebaceous Sebaceous Disease Active Yolanda ston cyst cyst 4-12 [facility] 00:00: st 00 Chest pain Chest pain Disease Active [place] 3-24 [facility] 00:00: st 00 Coronary Coronary Disease Active [place] artery artery 3-24 [facility] disease disease 00:00: st involving involving 00 [place] coronary coronary artery artery Essential Essential Disease Active Yolanda ston hypertensi hypertensi 324 Me thodi on on 00:00: st Dyslipidem Dyslipidem Disease Active [place] ia ia 09-19 [facility] 00:00: st 00 Allergies, Adverse Reactions, Alerts This patient has no known allergies or adverse reactions. Social History Social Habit Start Date Stop Date Quantity Comments Source History [facility] Meth odist Alcohol Std Drinks History [facility] Meth odist Alcohol Binge Sex Assigned At [facility] ethodist Tobacco use and 2020-03-16 2020-03-[address] [facility] ethodist exposure 00:00:00 00:00:00 Alcohol intake 2020-03-16 2020-03-16 Current [facility] thodist 00:00:00 00:00:00 non-drinker of alcohol (finding) History [facility] 2020-01-18 2020-01-18 1 [place] [facility] odist Alcohol Frequency 00:00:00 00:00:00 Smoking Status Start Date Stop Date Source Never smoker [place] [facility] t Medications Ordered Filled Start Stop Current Ordering Indication Dosage Frequency Signature Comments Components Source Medication Medication Date Date Medication? Clinician (SIG) Name Name Toviaz 4 mg 2019-06 Yes Take 1 [place] tablet 1-30 tablet by [facility] extended 00:00: mouth once st release 24 00 daily hr oxybutynin 2019-06 Yes Take 1 [place] XL 0-27 tablet by [facility] (DITROPAN-X 00:00: mouth once st L) 5 MG 24 00 daily hr tablet atorvastati 2019- Yes 20mg QD Take 20 mg [facility] n (LIPITOR) 9-16 by mouth Meth seamus 20 MG 18:05: nightly. st tablet 26 doxazosin 2019- Yes 4mg Take 4 mg Yolanda ston (CARDURA) 4 -16 by mouth. Met hodi MG tablet 18:05: st 26 warfarin 2019-0 Yes 5mg QD Take 5 mg [place] (COUMADIN) 03-14 by mouth Metho di 5 MG tablet 18:05: daily. st allopurinol 2019-0 Yes allopurino [facility] (ZYLOPRIM) 03-14 l 300 mg Metho di 300 MG 18:05: tablet st tablet 26 Take 1 tablet every day by oral route nightly turmeric-he 2019-0 Yes 1{capsu Q.5D Take 1 [place] rbal 03-14 le} capsule by [facility] complex 18:05: mouth 2 st no.278 150 26 (two) mg capsule times a day. docusate 2019- No 100mg Q.5D Take 1 [place] sodium 03-14 capsule [facility] (Colace) 00:00: 23:59 ([address] 100 MG 00 :00 total) by capsule mouth 2 (two) times a day for 30 days. oxybutynin 2019- No 5mg QD Take 1 [place] XL 03-14 tablet (5 [facility] (Ditropan 00:00: 23:59 mg total) st XL) 5 MG 24 00 :00 by mouth hr tablet daily for 30 days. traMADoL 2019- No acute pain 50mg Q8H Take 1 [place] (ULTRAM) 50 03-14 tablet (50 M ethodi mg tablet 00:00: 23:59 mg total) st 00 :00 by mouth every 8 (eight) hours as needed for moderate pain for up to 7 days .acute pain. sulfamethox 2020- No 1{tbl} Q.5D Take 1 [facility] azole[facility] 03-14 tablet by Me thodi thoprim 00:00: 23:[address] (Bactrim 00 :00 (two) DS) 800-160 times a mg per day for 5 tablet days. furosemide 2019- No 40mg QD Take 40 mg [facility] (LASIX) 40 03-09 by mouth Meth seamus mg tablet 11:37: 00:[address] 32 :00 takes occasional ly azithromyci 2019- 2020- No Pneumonia 250mg QD Take 1 [facility] n 01-17 due to tablet [facility] (ZITHROMAX) 00:00: 23:59 infectious ([address] 250 MG 00 :00 organism, total) by tablet unspecified mouth laterality, daily for unspecified 4 days. part of Take first lung 2 tablets together, then 1 every day until finished. docusate 2018-06- No 100mg Q.5D Take 1 [place] sodium 08-01-18 capsule [facility] (COLACE) 00:00: 23:59 ([address] 100 MG 00 :00 total) by capsule mouth 2 (two) times a day for 15 days. acetaminoph 2018-06- No acute pain 1{tbl} Q6H Take 1-2 [facility] en-codeine 08-01 12-10 tablets by Me perales (TYLENOL 00:00: 23:[address] WITH 00 :00 every 6 CODEINE #3) (six) 300-30 mg hours as per tablet needed for moderate pain for up to 30 doses .Acute Pain. TOVIAZ 4 mg 2018-06- No TAKE 1 Yolanda ston tablet 0- 11-30 TABLET BY [facility] extended 00:00: 00:[address] release 24 00 :00 DAILY hr allopurinol allopurinol No 1 Q1D allopurino [facility] 100 mg 100 mg l 100 mg Family tablet Take tablet Take tablet Practic 1 tablet 1 tablet Take 1 e every day every day tablet by oral by oral every day route. route. by oral route. atorvastati atorvastati No 1 Q1D atorvastat [facility] n 40 mg n 40 mg in 40 mg Famil y tablet Take tablet Take tablet Practic 1 tablet 1 tablet Take 1 e every day every day tablet by oral by oral every day route. route. by oral route. doxazosin 4 doxazosin 4 No 1 BID doxazosin [place] mg tablet mg tablet 4 mg Famil y Take 1 Take 1 tablet Practic tablet tablet Take 1 e twice a day twice a day tablet by oral by oral twice a route. route. day by oral route. Toviaz 4 mg Toviaz 4 mg No 1 Toviaz 4 [place] tablet,exte tablet,exte mg F amily nded nded tablet,ext Practic release release ended e Take 1 Take 1 release tablet as tablet as Take 1 needed by needed by tablet as oral route. oral route. needed by oral route. warfarin 2 warfarin 2 No 1 Q1D warfarin 2 [place] mg tablet mg tablet mg tablet Family Take 1 Take 1 Take 1 Practic tablet tablet tablet e every day every day every day by oral by oral by oral route. route. route. warfarin 3 warfarin 3 No 1 Q1D warfarin 3 [facility] mg tablet mg tablet mg tablet Family Take 1 Take 1 Take 1 Practic tablet tablet tablet e every day every day every day by oral by oral by oral route. route. route. Immunizations Ordered Immunization Filled Immunization Date Status Commen ts Source Name Name zoster, unspecified zoster, unspecified 2018-06-29 Completed [facility] formulation formulation 00:00:00 Practice pneumococcal, pneumococcal, 2018-06-29 Completed [facility] unspecified unspecified 00:00:00 Practice formulation formulation influenza, influenza, 2018-06-29 Completed [facility] injectable, injectable, 00:00:00 Practice quadrivalent quadrivalent Vital Signs Vital Name Observation Time Observation Value Comments Source Height 2020-03-23 00:00:00 68 [in_i] [facility] BMI (Body Mass 2020-03-23 00:00:00 25.1 kg/m2 [facility] Family Index) Practice Body Weight 2020-03-23 00:00:00 165 [lb_av] [facility] Systolic blood 2020-03-14 12:14:00 149 mm[Hg] [place] [facility] pressure Diastolic blood 2020-03-14 12:14:00 67 mm[Hg] [place] [facility] pressure Heart rate 2020-03-14 12:14:00 61 /min [facility] Body temperature 2020-03-14 12:14:00 36.44 Liudmila [place] [facility] Respiratory rate 2020-03-14 12:14:00 18 /min Gal[facility] Wild Oxygen saturation in 2020-03-14 12:14:00 100 /min Luke Wild Arterial blood by Pulse oximetry Body height 2020-03-14 08:43:00 172.7 cm Luke Wild Body weight 2020-03-14 08:43:00 74.844 kg Luke [facility] BMI 2020-03-14 08:43:00 25.09 kg/m2 [facility] Procedures Procedure Date / Time Performing Clinician Source Performed [place] RENAL STENTOGRAM 2020-03-14 11:20:00 Berna Nicole [place] AN ELECTIVE 2020-03-14 10:46:13 Zach Mon ethodist SUPRAGLOTTIC AIRWAY Joaquim CYSTOSCOPY 2020-03-14 10:19:00 Berna Nicole ECG PRE/POST OP 2020-03-09 11:33:05 Berna Nicole URINE CULTURE 2020-03-09 11:20:00 TyJessyBernamarjorie Jackson odist COVID-19 QUALITATIVE PCR 2020-03-09 11:18:00 Berna Nicole HC COMPLETE BLD COUNT 2020-03-09 11:16:00 Berna Nicole W/AUTO DIFF COMPREHENSIVE METABOLIC 2020-03-09 11:16:00 Berna Nicole PANEL PARTIAL THROMBOPLASTIN 2020-03-09 11:16:00 Berna Nicole on [facility] TIME (PTT) PROTHROMBIN TIME WITH INR 2020-03-09 11:16:00 Berna Nicole URINALYSIS SCREEN AND 2020-03-09 11:16:00 Berna Nicole MICROSCOPY, WITH REFLEX TO CULTURE ESTIMATED GFR 2020-03-09 11:16:00 Berna Nicole URINE CULTURE 2020-01-18 12:45:00 Tu, Michelle Wild URINALYSIS SCREEN AND 2020-01-18 12:45:00 Tu, YenNeel Wild MICROSCOPY, WITH REFLEX TO CULTURE CT CHEST WO CONTRAST 2020-01-18 10:55:35 Tu, Meche-Rickie Wild HC COMPLETE BLD COUNT 2020-01-18 10:12:00 Tu, Yen-Rickie Wild W/AUTO DIFF COMPREHENSIVE METABOLIC 2020-01-18 10:12:00 Tu, Michelle Wild PANEL ESTIMATED GFR 2020-01-18 10:12:00 Tu, Michelle Wild CT RENAL STONE PROTOCOL 2020-01-18 10:07:55 Tu, Michelle Wild FL RENAL STENTOGRAM 2019-05-31 09:30:00 Berna Nicole [place] AN ELECTIVE 2019-05-31 09:12:08 Jess Tejeda ethodist SUPRAGLOTTIC AIRWAY CYSTOSCOPY, WITH URETERAL 2019-05-31 08:55:00 Berna Nicole STENT REPLACEMENT PROTHROMBIN TIME WITH INR, 2019-05-31 08:01:00 Berna Nicole andreskiley [facility] I-STAT Plan of Care Planned Activity Planned Date Details Comments Source Future Scheduled Test 2020-01-28 INFLUENZA VACCINE Viviane andreskiley [facility] 00:00:00 [code = INFLUENZA VACCINE] Future Scheduled Test 1996-09-04 65+ PNEUMOCOCCAL Ho lili [facility] 00:00:00 VACCINE (1 of 1 - PPSV23) [code = 65+ PNEUMOCOCCAL VACCINE (1 of 1 - PPSV23)] Future Scheduled Test 1981-09-04 SHINGLES VACCINES ariel [facility] 00:00:00 (#1) [code = SHINGLES VACCINES (#1)] Future Appointment 2020-09-20 Vannesa العلي, [facility] ill[facility] Family 00:00:00 Kei Blake; [address] [address], [place] [address] [facility] Encounters Start End Encounter Admission Attending Care Care Encounter Source Date/Time Date/Time Type Type Clinicians Facility Department ID 2020-04-09 2020-04-09 Box Toe Stitcher Shayan Bhatia [facility] [id number] 08:39:21 08:54:21 Visit Lab Main [place] [id number] [place] [id number] Professio [id number] [address] 2020-03-23 2020-03-23 Vannesa [facility] [place] - [id number] V illage 00:00:00 00:00:00 [facility] HospitalJeromyjosé miguel [facility] kalen jaffe, GILL BOX OPERATOR: Medical - Practi c [email or web address] [email or web address], [address] [address], [place] [address] , Ph. 2020-03-14 2020-03-14 Outpatient [facility] [id number] [place] 00:00:00 00:00:00 BERNA 943 Method i 2020-03-09 2020-03-09 Outpatient [facility] [id number] [place] 00:00:00 00:00:00 BERNA 918 Method i 2020-03-02 2020-03-02 Outpatient [facility] [id number] [place] 00:00:00 00:00:00 BERNA 398 Method i 2020-01-18 2020-01-18 Emergency MICHELLE BRADSHAW [facility] [id number] [place] 00:00:00 00:00:[address] 2019-12-05 2019-12-05 Vannesa [facility] [place] - [id number] V illage 00:00:00 00:00:00 Hua-Greta [facility] Denis kalen o, GILL BOX OPERATOR: Medical - Practi tara [address] [email or web address], [address], [place] [address] , Ph. Results Test Description Test Time Test Comments Results Result Sourc e Comments FL Renal 2020-02-28 [facility] Stentogram [address] 15:30:24 Incoming - 03/14/2020 3:33 PM CDTIMPRESSION: C-arm Fluoroscopy under 1 hour was provided in the OR for the referring physician. A radiologist was not present during the procedure. Refer to the Operative report issued by the performing provider for procedure details. Airway 2020-02-28 Camryn Martinez 6 03/14/2020 10:46 [facility] 10:46:13 AMAirwayDate/Time: 03/14/2020 10:30 AMPerformed by: Camryn MartinezAuthorized by: Zach Mon MD Location: ORUrgency: ElectiveDifficult Airway: No Resident/MEDIA DEVELOPER/AA: Rosalind MartinezferPerformed by: resident/MEDIA DEVELOPER/AAPreoxy genated with 100% O2: Yes C-spine Precautions Maintained Throughout: No Mask Ventilation: Not attemptedFinal Airway Type: Supraglottic airwayFinal LMA: I-GelLMA Size: 5Number of Attempts at Approach: 1 Patient preoxygenated, eyes taped after induction, iGel 4inserted atraumatically with all soft tissue and dentition intact. iGel positioning verified, positive EtCO2, adequate Vt, and secured in place with silk tape. ECG Pre/Post Op 2020-03-09 19:23:12 Test Item Value Reference Range Interpretation Comme nts Ventricular rate (test code = 253) 57 Atrial rate (test code = 255) 80 QRSD interval (test code = 260) 146 QT interval (test code = 264) 500 QTC interval (test code = 265) 486 QRS axis 1 (test code = 268) 82 T wave axis (test code = 270) 18 EKG impression (test code = 273) Atrial fibrillation with slow vent ricular response-Right bundle branch block-Abnormal ECG-In automated comparison with ECG of 19-MAY-2019 11:49,-No significant change was found- Luke MethodistCOVID-19 qualitative [id number] 17:42:16 Test Item Value Reference Range Interpretation Comments Interpretation (test Negative results do code = 9143077) not preclude 2019-nCoV infection and should not be used as the sole basis for treatment or other patient management decisions. Negative results must be combined with clinical observations, patient history, and epidemiological information. COVID-19 qualitative Not-Detected Not-Detected PCR result (test code = 73060-8) COVID-19 qualitative See link below for C ase Number: PCR (test code = PDF Lab Report [id number]) [facility]Com[facility] metabolic [id number] 14:07:58 Test Item Value Reference Range Interpretation Comments Sodium (test code = 141 135- 148 mEq/L 2951-2) Potassium (test code = 5.2 3.5- 5.0 mEq/L H 2823-3) Chloride (test code = 105 98- 112 mEq/L 5-0) CO2 (test code = 2027-9) 24 24- 31 mEq/L Anion gap (test code = 12@ANIO 7- 15 mEq/L 31850-9) BUN (test code = 3094-0) 39 mg/dL 8-23 H Creatinine (test code = 2.24 mg/dL 0.7-1.2 H 2160-0) Glucose (test code = 100 mg/dL 65-99 H 2345-7) Calcium (test code = 9.3 mg/dL 8.8-10.2 65970-4) Protein (test code = 7.3 g/dL 6.3-8.3 -[place] n 2885-2) 4.6-7.0 g/dL1 week 4.4-7 .6 g/dL7 months-1y ear 5.1-7 .3 g/dL1-2 years 5.6-7 .5 g/dL>3 years 6.0-8 .0 g/fA78-348 6.3-8 .3 g/dL Albumin (test code = 4.1 g/dL 3.5-5 1751-7) A/G ratio (test code = 1.3 0.7-3.8 1759-0) Alkaline phosphatase 115 U/L 40-129 (test code = 6768-6) AST (test code = 1920-8) 47 U/L 10-50 ALT (test code = 1742-6) 43 U/L 5-50 Total bilirubin (test 0.8 mg/dL 0-1.2 code = 1974-) Lab Interpretation (test Abnormal code = 82346-2) Luke MethodistEstimated [id number] 14:07:57 Test Item Value Reference Range Interpretation Comments Estimated GFR (test 25 mL/min/1.73 m2 A Lauritaerg altagracia Units code = 5488) InterpretationG 1 >=90 Lachelle l or highG2 60-89 Mildly decrease dG3a 45-59 Mil dly to moderately decr pordaD8s 30-44 Moderately to s everely decreasedG4 15-29 Severe ly decreasedG5 <15 Kidney siva lureThe eGFR was calcul ated using the Chron ic Kidney Disease Epidemiology Collaboration ( CKD-EPI) equation. Interpretation is based on recommendati ons of the National Ki ey [facility]-Kidn ey Disease Outcome s Quality Initiat chanel (NKF-KDOQI) pub lished in 2013. Lab Interpretation Abnormal (test code = 43929-8) Luke MethodistPartial thromboplastin time, [id number] 13:47:09 Test Item Value Reference Range Interpretation Comments PTT (test code = 38.6 23.0- 36.0 sec H PTT thera peutic range 20414-9) for unfractiona rosio heparin is61.0- 112.0 seconds which corresponds to Anti-Xa0.3-0.7 U/ml. Lab Interpretation Abnormal (test code = 27961-6) Luke MethodistProthrombin time with [id number] 13:38:19 Test Item Value Reference Range Interpretation Comments Prothrombin time (test 24.4 11.5- 14.5 sec H code = 5902-2) INR (test code = 2.2 The Interna tional 61976-4) Normalized Rati o (INR) is a therapeuti c monitoring tool for patients who ar e stable on oral anticoagulant t herapy. An INR of 2.0-3 .0 is suggested for d eep vein thrombosis/pulm onary embolism. Lab Interpretation Abnormal (test code = 07892-6) Luke SoodistUrine [id number] 13:18:36 Test Item Value Reference Range Interpretation Comments Urine culture (test SEE COMMENT Bacteriu sonia screen code = 2383423) negative. Luke MethodistUrinalysis screen and microscopy, with reflex to culture 2020-03-09 13:18:32 Test Item Value Reference Range Interpretation Comments Specimen site (test code = Clean catch 3066158) Color, UA (test code = 5778-6) Straw Appearance, UA (test code = Clear 5767-9) Specific gravity, UA (test code = 1.014 1.001-1.035 5811-5) pH, UA (test code = 5803-2) 6.0 5.0-8.5 Protein, UA (test code = 43554-1) Negative Negative Glucose, UA (test code = 46441-4) Negative Negative Ketones, UA (test code = 2514-8) Negative Negative Bilirubin, UA (test code = Negative Negative 5770-3) Blood, UA (test code = 5794-3) Large Negative A Nitrite, UA (test code = 5802-4) Negative Negative Urobilinogen, UA (test code = <2.0 <2.0 91000-6) Leukocyte esterase, UA (test code Negative Negative = 5799-2) WBC, UA (test code = 5821-4) 1 0- 1 /HPF RBC, UA (test code = 27930-5) 70 0- 5 /HPF H Bacteria, UA (test code = None seen None seen 97849-3) Yeast, UA (test code = 28895-9) None seen Yeast with pseudohyphae, UA (test None seen code = 75603-5) Lab Interpretation (test code = Abnormal 61905-7) Luke MethodistCBC with platelet and [id number] 12:59:48 Test Item Value Reference Range Interpretation Comments WBC (test code = 69626-4) 4.73 4.50- 11.00 k/uL RBC (test code = 83733-8) 4.10 m/uL 4.4-6 L HGB (test code = 718-7) 13.3 g/dL 14-18 L HCT (test code = 4544-3) 41.8 % 41-51 MCV (test code = 787-2) 102.0 fL 82-100 H MCH (test code = 785-6) 32.4 pg 27-34 MCHC (test code = 786-4) 31.8 g/dL 31-37 RDW - SD (test code = 52.6 fL 37-55 37421-1) MPV (test code = 86911-9) 11.8 fL 8.8-13.2 Platelet count (test code 110 150- 400 k/uL L = 25042-9) Nucleated RBC (test code 0.00 /100 WBC = 14112-9) Neutrophils (test code = 69.8 % 39-69 H 87917-9) Lymphocytes (test code = 18.2 % 25-45 L 34814-4) Monocytes (test code = 7.0 % 0-10 04525-6) Eosinophils (test code = 3.8 % 0-5 73656-0) Basophils (test code = 0.8 % 0-1 79296-9) Immature granulocytes 0.4 % 0-1 "Immat ure (test code = 16140-9) granul ocytes" (promyelocytes, myelocytes, metamyelocytes) Lab Interpretation (test Abnormal code = 19803-5) [facility] Chest Wo [id number] 11:28:53Hm Interface, Radiology Results 01/18/2020 11:32 AM CDTEXAMINATION: CT CHEST WO CONTRASTCL INICAL HISTORY: sobTECHNIQUE: Axial images of the chest were obtained without intravenous contrast.The lack of intravenous contrast reduces the sensitivity of the exam and evaluating vasculature. CT imaging was performed with iterative reconstruction technique and/or automated exposure control to reduce radiation dose.COMPARISON: Limited comparison with chest radiograph from May 19, 2019FINDINGS:Lungs and airways: There is airspace disease in the right lower lobe. Minimal scarring with a fewfoci of cylindrical bronchiectasis in the lower lungs. A few benign granulomas are noted.Pleura: There may be trace right pleural fluid adjacent to the airspace disease. No pneumothorax.Mediastinum and lymph nodes: Prominent mediastinal and hilar lymph nodes, for example subcarinal node measuring up to 1.2 cm, favored to be reactive. Cardiovascular: Four- chamber cardiomegaly. Heavy coronary artery and additional scattered vascular calcifications, including mitral annular and aortic valve leaflets.Upper abdomen: Calcified hepatic and splenic granulomas.Musculoskeletal: Spondylosis. Demineralized bones.IMPRESSION:1.Right lower lobe airspace disease, compatible with pneumonia. This distribution is atypical for COVID-19 pneumonia, and more typical of community acquired bacterial pneumonia.2.Four-chamber cardiomegaly. Heavy coronary artery calcifications.[facility]-[id number] [facility] Renal Stone [id number] 10:22:08Hm Interface, Radiology Results - 01/18/2020 10:25 AM CDTEXAMINATION: CT RENAL STONE PROTOCOLCLINICAL HISTORY: flank painCOMPARISON: 01/11/2018.TECHNIQUE: CT of the abdomen and pelvis without intravenous contrast. Absence of contrast decreases sensitivity for detection of focal lesions and vascular pathology.All CT scan performed using radiation dose reduction techniques. Technical factorsare evaluated and adjusted to ensure appropriate moderation of exposure. Automated dose management te chnology is applied to adjust the radiation dose to minimize expose while achieving a diagnostic quality image.FINDINGS:LUNG BASES: Bibasilar posterior subpleural consolidation with surrounding groundglass opacity is seen.HEPATOBILIARY: Limited evaluation of the liver is unremarkable. No intrahepaticbiliary dilatation is seen.GALLBLADDER: No gallstones are seen. No wall thickening or pericholecystic fluid collection is identified.SPLEEN: Limited nonenhanced evaluation of the spleen is unremarkable. No splenomegaly.PANCREAS: Limited nonenhanced evaluation of the pancreas is unremarkable. No ductal dilation is seen.ADRENALS: The adrenal glands are unremarkable. KIDNEYS: A right double-J ureteralstent is seen, new when compared to prior study. Mild residual right hydronephrosis is present, markedly improved in the interim. No renal calculus is seen. There is no evidence of left hydronephrosis. Limited nonenhanced evaluation of the kidneys otherwise unremarkable.PERITONEUM/RETROPERITONEUM: Nomesenteric or retroperitoneal pathologic adenopathy is seen. No free air is seen.GI TRACT: The smallbowel demonstrates no wall thickening or dilatation. Scattered diverticula are seen predominantly the sigmoid colon. The colon is otherwise unremarkable. No wall thickening is identified. There is no evidence of inflammatory process. Appendix is not seen.. No right low quadrant inflammation is seen. The stomach is unremarkable.BONES: An approximately 6 mm degenerative anterolisthesis L4 on L5 is again noted.VASCULATURE: Scattered atherosclerotic disease is seen of the abdominal aorta. PELVIS:BLADDER: The urinary bladder is unremarkable.GENITALIA: Limited evaluation of the prostate gland and seminalvesicle is unremarkable. .FLUID: None. IMPRESSION:Satisfactory right double-J ureteral stent placement with mild residual right hydronephrosis, markedly improved in the interim.No CT evidence of renal calculus.Mild diverticulosis without evidence of acute diverticulitis. No CT evidence of gastroenteritis or small bowel obstruction.Incidental note of right basilar subpleural consolidation and groundglass opacity, suggestive of pneumonia/pneumonitis. Aspiration pneumonia is also a consideration. Recommend clinical correlation.[id number] [id number] 09:12:08Jess Tejeda CRNA 05/31/2019 9:12 AMAirwayDate/Time: 05/31/2019 9:12 AMPerformed by: Jess Tejeda CRNAAuthorized by: Onofre Gallo MD Location: ORUrgency: ElectiveDifficult Airway: No Preoxygenated with 100% O2: Yes C-spine Precautions Maintained Throughout: Yes Mask Ventilation: Not attemptedFinal Airway Type: Supraglottic airwayFinal LMA: I-GelLMA Size: 5Number of Attempts at Approach: 1 iGel #5 placed by ER Resident Matt. Yusra Wild Prothrombin time with INR, [id number] 08:03:17 Test Item Value Reference Range Interpretation Comments POC prothrombin time 17.3 11.0- 14.5 sec H (test code = 5964-2) POC INR (test code = 1.5 The Int ernational 08652-4) Normalized Rati o (INR) is a therapeuti c monitoring tool for patients who ar e stable on oral vitamin K antagonist th erapy. An INR of 2.0-3 .0 is suggested for d eep vein thrombosis/pulm onary embolism. An IN R of 2.5-3.5 (high d ose) is suggested for s ome patients with mechanical hear t valves)Meter ID : [id number]: Charissa Contreras Lab Interpretation Abnormal (test code = 66034-6) Luke Wild
--- OUTSIDE RECORDS SUMMARY | 2020-05-28 18:29 | XMS REPORT | Summary of Care ---
:1930 Author Organization [facility] Address [address] [place] [id number] Care Team Providers Name Role Phone MD Jayjay Primary Care Provider Reason for Visit Reason Comments LAB WORK Auth/Cert Status Reason Specialty Diagnoses / Procedures Referred By Lauri booth Referred To Contact Phlebotomy Procedures Adc Pob Lab Draw CMP Professional O ffice Building [address] [place] [address] eliana Ross, [address] [place] [address] Phone: Fax: Encounter Details Date Type Department Care Team Description 04/09/2020 Financial Assistance Advisor Visit [facility] Wilfred Hampton, DO [address] [place] [address] Chronic kidney disease, stage IV (severe ) (Primary Dx); Professional Office Pob, Adc Lab Main Other proteinuria; Building Phlebotomy Acidosis ; Lab Hyperpotassemia; Professional Office Renal hy pertension; Building Impaired fasting glucose; [address] [facility] [address] [place] [address] Allergies No Known Allergiesdocumented as of this encounter (statuses as of 04/12/2020) Medications No known medicationsdocumented as of this encounter (statuses as of 04/12/2020) Active Problems Problem Noted Date Chest pain 09/19/2016 GI bleed 09/15/2016 documented as of this encounter (statuses as of 04/12/2020) Social History Tobacco Use Types Packs/Day Years [...] processed according to instructions and sent to [facility] laboratories per lab order on today: LT [...] documented in this encounter Plan of Treatment Health Maintenance Due Date [...] 04/09/2020 8:54 Chronic kidney Results for this (61698) AM CDT disease, stage IV procedure are in (severe) the results Other proteinuri a section. Acidosis Hyperpotassemia Renal hypertensi on Impaired fasting glucose Avitaminosis D MICROALBUMIN URINE Routine 04/09/2020 8:54 Chronic kidney Res ults for this AM CDT disease, stage IV [...] Avitaminosis D documented in this encounter Results MICROALBUMIN URINE (04/09/2020 8:54 AM CDT) Pathologist Sig nature CREAT U 100.3 mg/dL [facility] MICROALB U 118 (H) 0 - 45 ug/mL [facility] MICROAL/CR 118 (H) 0 - 30 mg/g of [facility] creatinine SERVICES Specimen Urine - URINE, CLEAN CATCH Narrative Performed At Normal: <30 mg/g creatinine [facility] Microalbuminuria: 30 - 299 mg/g creatini ne Clinical albuminuria: > 300 mg/g creatinine Performing Organization Address City/State/Zipcode Phone Number [facility] CLIA: [id number] [place] [address] [place] [address] URINALYSIS (04/09/2020 8:54 AM CDT) Pathologist Sig nature APPEARANCE Hazy (A) Clear [facility] COLOR Yellow Yellow [facility] PH 5.0 4.8 - 8.0 [facility] SP GRAVITY 1.015 1.003 - 1.030 [facility] GLU U QUAL Normal Normal [facility] BLOOD 3+ (A) Negative [facility] KETONES Negative Negative [facility] PROTEIN 30 mg/dL (A) Negative [facility] UROBILIN Normal Normal [facility] BILIRUBIN Negative Negative [facility] NITRITE Negative Negative [facility] LEUK SUSHIL 250/uL (A) Negative [facility] RBC/HPF >182 (H) 0 - 3 HPF [facility] WBC/HPF 10 (H) 0 - 5 HPF [facility] BACTERIA Few (A) Negative [facility] MUCOUS Slight (A) Negative LPF [facility] SQ EPITH <1 HPF [facility] Specimen Urine - URINE, CLEAN CATCH Performing Organization Address [facility] Phone Number [facility] CLIA: [id number] [place], [place] [id number] LABORATORY [address] URIC ACID (04/09/2020 8:54 AM CDT) Pathologist Sig nature URIC ACID 7.4 3.6 - 8.0 mg/dL [facility] Specimen Blood Performing Organization Address City/[facility] Phone Number [facility] CLIA: [id number] [place], [place] [address] LABORATORY [address] PHOSPHORUS (04/09/2020 8:54 AM CDT) Pathologist Sig nature PHOSPHORUS 3.3 2.5 - 5.0 mg/dL [facility] Specimen Blood Performing Organization Address [facility] Phone Number [facility] CLIA: [id number] [place], [place] [id number] LABORATORY [address] MAGNESIUM (04/09/2020 8:54 AM CDT) Pathologist Sig nature MAGNESIUM 1.9 1.7 - 2.4 mg/dL [facility] Specimen Blood Performing Organization Address City/[facility] Phone Number [facility] CLIA: [id number] [place] [address] GLYCOSYLATED HEMOGLOBIN (A1C) (04/09/2020 8:54 AM CDT) Pathologist Sig nature HGB A1C 5.4 4.0 - 6.0 % [facility] Specimen Blood Narrative Performed At %A1C (NGSP) Interpretation (ADA) [facility] 4.8-5.6 Normal or (Non-Diabetic Ra nge) 5.7-6.4 Increased Risk (Pre-Diabet ic) >6.5 Diabetes Indicated Performing Organization Address [facility] [place] [place] Phone Number [facility] CLIA: [id number] [place] [address] COMP. METABOLIC PANEL (25188) (04/09/2020 8:54 AM CDT) NA 140 135 - 145 [facility] mmol/L [facility] K 4.6 3.5 - 5.0 [facility] mmol/L [facility] CL 107 98 - 108 mmol/L [facility] CO2 TOTAL 23 23 - 31 mmol/L [facility] AGAP 10 2 - 16 [facility] BUN 50 (H) 7 - 23 mg/dL [facility] GLUCOSE 96 70 - 110 mg/dL [facility] CREATININE 2.22 (H) 0.60 - 1.25 [facility] mg/dL [facility] TOTAL BILI 0.8 0.1 - 1.1 mg/dL [facility] CALCIUM 9.3 8.6 - 10.6 [facility] mg/dL [facility] T PROTEIN 6.4 6.3 - 8.2 g/dL [facility] ALBUMIN 3.9 3.5 - 5.0 g/dL [facility] ALK PHOS 91 34 - 122 U/L [facility] ALTv 38 5 - 50 U/L [facility] AST(SGOT) 45 (H) 13 - 40 U/L [facility] eGFR Calculation 28.1 mL/min/1.73m2 [facility] (Non-[facility] [place]raini) eGFR Calculation 34.1 mL/min/1.73m2 [facility] () [facility] Specimen Blood Narrative Performed At Association of Glomerular Filtration Rate (GFR) [facility] and Staging of Kidney Disease* + [...] tests). Performing Organization Address City/State/Zipcode Phone Number [facility] CLIA: [id number] [place] [address] CBC WITH DIFF (04/09/2020 8:54 AM CDT) WBC 3.70 (L) 4.20 - 10.70 [facility] 10*3/L [facility] RBC 3.90 (L) 4.26 - 5.52 [facility] 10*6/L [facility] HGB 12.8 12.2 - 16.4 [facility] g/dL [facility] HCT 39.5 38.4 - 49.3 % [facility] MCV 101.3 (H) 81.7 - 95.6 [facility] fL [facility] MCH 32.8 (H) 26.1 - 32.7 [facility] pg [facility] MCHC 32.4 31.2 - 35.0 [facility] g/dL [facility] RDW-SD 52.4 (H) 38.5 - 51.6 [facility] LABORATORY RDW-CV 14.0 12.1 - 15.4 % [facility] PLT 123 (L) 150 - 328 [facility] 10*3/L [facility] MPV 11.4 9.8 - 13.0 fL [facility] IPF % 5.1Comment: Platelet 1.2 - 10.7 % [facility] count measured by HOSPITAL fluorescence method. LABORATORY NRBC/100 WBC 0.0 0.0 - 10.0 [facility] /100 WBCs [facility] NRBC x10^3 <0.01 10*3/L [facility] GRAN MAT (NEUT) % 60.2 % [facility] IMM GRAN % 0.00 % [facility] LYMPH % 24.1 % [facility] MONO % 9.2 % [facility] EOS % 5.4 % [facility] BASO % 1.1 % [facility] GRAN MAT 2.23 1.99 - 6.95 [facility] x10^3(ANC) 10*3/uL [facility] IMM GRAN x10^3 <0.03 0.00 - 0.06 [facility] 10*3/uL [facility] LYMPH x10^3 0.89 (L) 1.09 - 3.23 [facility] 10*3/uL [facility] MONO x10^3 0.34 (L) 0.36 - 1.02 [facility] 10*3/uL [facility] EOS x10^3 0.20 0.06 - 0.53 [facility] 10*3/uL [facility] BASO x10^3 0.04 0.01 - 0.09 [facility] 10*3/uL [facility] Specimen Blood Performing Organization Address City/State/Zipcode Phone Number [facility] CLIA: [id number] [place] [address] documented in this [...] Effective Dates Phone Addre ss Type Group [employer] [facility] [phone] 2019-Presen Medicare Adv PLUS PLUS CHOICE t HMO/POS documented as of this encounter"
[2020-05-28] MEDS ORDERED: CEFTRIAXONE/SWI 1gm 1 GM/10 ML SYR ONE (19:29)
[2020-05-28] MEDS ORDERED: AZITHROMYCIN 500 MG INJ IVPB ONE (19:29)
[2020-05-28] MEDS ORDERED: NA CHLORIDE 0.9% 250 ML ONE (19:29)
[2020-05-28 19:37] LABS: Absolute Lymphocytes (CBC) 0.4 K/uL (0.7-4.9); Basophils % 0.4 % (0-1.3); Hematocrit 35.4 % (39.6-49.0); Lymphocytes % 3.7 % (15.3-44.8); MPV 9.2 fL (7.6-11.3); RBC Red Blood Cell Count 3.65 M/uL (4.33-5.43)
[2020-05-28] MEDS ORDERED: NA CHLORIDE 0.9% 1,000 ML ONE (19:46)
[2020-05-28 19:55] LABS: Protime INR 7.48
[2020-05-28 20:15] LABS: Albumin 2.9 g/dL (3.4-5.0); Bilirubin Direct 0.5 mg/dL (0-0.2); Bilirubin Total 1.1 mg/dL (0.2-1.0); CKMB Creatine Kinase MB 2.2 ng/mL (0.3-3.6); Potassium 4.5 mmol/L (3.5-5.1); Protein, Total 7.1 g/dL (6.4-8.2); Troponin (Emerg Dept Use Only) 0.04 ng/mL (0.0-0.045)
--- NOTE | 2020-05-28 20:26 | ER ---
Nurse's Notes [facility] Name: Mihir Claire Age: 89 yrs Sex: Male : 1930 Arrival Date: 05/28/2020 Time: 18:30 Bed 14 Private MD: Fela Ro R Diagnosis: Pneumonia due to other infectious organisms, not elsewhere classified Presentation: 05/28 18:44 Chief complaint: Patient states: fatigue, decreased appetite and intermittent fever ss that began 6 days ago. Pt was seen at [facility] and diagnosed with pneumonia and sent home with Augmentin, Azithromycin and an inhaler. Pt states that he is not getting any better. Coronavirus screen: Client denies travel out of the [place] in the last 14 days. Ebola Screen: Patient denies exposure to infectious person. Patient denies travel to an Ebola-affected area in the 21 days before illness onset. Initial Sepsis Screen: Does the patient meet any 2 criteria? No. Patient's initial sepsis screen is negative. Does the patient have a suspected source of infection? No. Patient's initial sepsis screen is negative. Risk Assessment: Do you want to hurt yourself or someone else? Patient reports no desire to harm self or others. Onset of symptoms was May 23, 2020. 18:44 Method Of Arrival: Ambulatory ss 18:44 Acuity: SHARON 3 ss Historical: - Allergies: 18:51 No Known Allergies; ss - PMHx: 18:51 Hypertension; Hyperlipidemia; Myocardial infarction; Atrial Fib; kidney problems; ss - PSHx: 18:51 cardiac stent; ss - Immunization history:: Adult Immunizations up to date. - Social history:: Smoking status: Patient denies any tobacco usage or history of. Patient/guardian denies using alcohol, street drugs, The patient lives with family. - Family history:: not pertinent. Screenin:15 Abuse screen: Denies threats or abuse. Denies injuries from another. Nutritional wh screening: No deficits noted. Tuberculosis screening: No symptoms or risk factors identified. Fall Risk None identified. Assessment: 19:15 General: Appears in no apparent distress. Behavior is calm, cooperative, appropriate wh for age. Pain: Denies pain. Neuro: Level of Consciousness is awake, alert, obeys commands, Oriented to person, place, time, situation, Appropriate for age. Cardiovascular: Heart tones S1 S2. Respiratory: Reports cough that is Airway is patent Respiratory effort is even, unlabored, Respiratory pattern is regular, symmetrical, Breath sounds are diminished Breath sounds with rales. GI: Abdomen is flat, non-distended. : No signs and/or symptoms were reported regarding the genitourinary system. EENT: No signs and/or symptoms were reported regarding the EENT system. Derm: Skin is intact, is healthy with good turgor, Skin is pink, warm \T\ dry. normal. Musculoskeletal: Circulation, motion, and sensation intact. 20:30 Reassessment: Patient appears in no apparent distress at this time. No changes from previously documented assessment. Patient and/or family updated on plan of care and expected duration. Pain level reassessed. Patient is alert, oriented x 3, equal unlabored respirations, skin warm/dry/pink. Provider at bedside explaining POC need for admit. Vital Signs: 18:44 BP 135 / 64; Pulse 102; Resp 17; Temp 98.7(TE); Pulse Ox 96% on R/A; Weight 74.84 kg; Height 5 ft. 8 in. (172.72 cm); Pain 6/10; 20:09 BP 139 / 72; Pulse 83; Resp 16; Pulse Ox 99% ; rr5 21:00 BP 132 / 88; Pulse 68; Resp 18; Pulse Ox 96% on R/A; wh 18:44 Body Mass Index 25.09 (74.84 kg, 172.72 cm) ED Course: 18:30 Patient arrived in ED. mr 18:31 Fela Ro MD is Private Physician. mr 18:49 Triage completed. ss 18:51 Arm band placed on right wrist. ss 19:01 Marium Nava MD is Attending Physician. ma2 19:13 Nahomi Talley is Primary Nurse. 19:15 Patient has correct armband on for positive identification. Placed in gown. Bed in low wh position. Call light in reach. Side rails up X 1. residential monitor on. Pulse ox on. NIBP on. 19:25 Inserted saline lock: 20 gauge in right antecubital area, using aseptic technique. Blood collected. 19:56 Notified ED physician of a critical lab result(s). INR 7.48 d dimer 1602. rr5 20:13 XRAY CXR (1 view) In Process Unspecified. EDMS 20:26 Dayton Conroy MD is Hospitalizing Provider. ma2 21:09 No provider procedures requiring assistance completed. Patient admitted, IV remains in place. 21:12 Kevin Walters is Hospitalizing Provider. la1 21:13 Report given to Cruz Marie RN. 05/29 20:40 Inserted saline lock: 22 gauge in left forearm, using aseptic technique. jp3 Administered Medications: 05/28 19:33 Drug: NS 0.9% 1000 ml Route: IV; Rate: 125 ml/hr; Site: right antecubital; 21:10 Follow up: Response: No adverse reaction; IV Status: Infusion continued upon admission 19:35 Drug: Rocephin - (cefTRIAXone) 1 grams Route: IVPB; Infused Over: 30 mins; Site: right antecubital; 21:10 Follow up: Response: No adverse reaction; IV Status: Completed infusion 19:37 Drug: AZITHromycin 500 mg Route: IVPB; Infused Over: 1 hrs; Site: right antecubital; 21:10 Follow up: Response: No adverse reaction; IV Status: Completed infusion Outcome: 20:26 Decision to Hospitalize by Provider. ma2 21:09 Admitted to ER Hold. Please see [facility] for further documentation. 21:09 Condition: stable 21:09 Instructed on the need for admit. 05/29 23:19 Patient left the ED. dm5 Signatures: Dispatcher [employer] EDTN Tessa Hankins, RN RN dm5 Sidra Orona Shelby, RN NACHO Сергей Troy, HOUSE WIRER-C HOUSE WIRER-Cla1 Nahomi Talley Marium Nava MD MD ma2 Karthik Rascon 3 Dayton Jett, RN RN rr5
--- NOTE | 2020-05-28 20:26 | EDPHYS ---
Physician Documentation [facility] Name: Mihir Claire Age: 89 yrs Sex: Male : 1930 Arrival Date: 05/28/2020 Time: 18:30 Bed 14 Private MD: Fela Ro R ED Physician Marium Nava HPI: 05/28 20:22 This 89 yrs old Male presents to ER via Ambulatory with complaints of ma2 Pneumonia. 20:22 The patient or guardian reports cough. Onset: The symptoms/episode began/occurred ma2 gradually, 1 week(s) ago. Severity of symptoms: At their worst the symptoms were moderate, in the emergency department the symptoms are unchanged. Associated signs and symptoms: Pertinent negatives: ear ache, fever, sore throat, vomiting. The patient has experienced a previous episode. has been having pneumonia for a week almost finished z-pack, he states his cough is worest he is feeling weaker, no improvement . Historical: - Allergies: 18:51 No Known Allergies; ss - PMHx: 18:51 Hypertension; Hyperlipidemia; Myocardial infarction; Atrial Fib; kidney problems; ss - PSHx: 18:51 cardiac stent; ss - Immunization history:: Adult Immunizations up to date. - Social history:: Smoking status: Patient denies any tobacco usage or history of. Patient/guardian denies using alcohol, street drugs, The patient lives with family. - Family history:: not pertinent. ROS: 20:22 Constitutional: Negative for fever, chills, and weight loss. ma2 20:22 All other systems are negative. Exam: 20:22 Constitutional: This is a well developed, well nourished patient who is awake, alert, ma2 and in no acute distress. Head/Face: Normocephalic, atraumatic. Eyes: Pupils equal round and reactive to light, extra-ocular motions intact. Lids and lashes normal. Conjunctiva and sclera are non-icteric and not injected. Cornea within normal limits. Periorbital areas with no swelling, redness, or edema. ENT: Nares patent. No nasal discharge, no septal abnormalities noted. Tympanic membranes are normal and external auditory canals are clear. Oropharynx with no redness, swelling, or masses, exudates, or evidence of obstruction, uvula midline. Mucous membranes moist. Neck: Trachea midline, no thyromegaly or masses palpated, and no cervical lymphadenopathy. Supple, full range of motion without nuchal rigidity, or vertebral point tenderness. No Meningismus. Chest/axilla: Normal chest wall appearance and motion. Nontender with no deformity. No lesions are appreciated. Cardiovascular: Regular rate and rhythm with a normal S1 and S2. No gallops, murmurs, or rubs. Normal PMI, no JVD. No pulse deficits. Respiratory: has rales on righ lower and left upper lungs [place] No wheezes noted or nasal flaring. Abdomen/GI: Soft, non-tender, with normal bowel sounds. No distension or tympany. No guarding or rebound. No evidence of tenderness throughout. Skin: Warm, dry with normal turgor. Normal color with no rashes, no lesions, and no evidence of cellulitis. MS/ Extremity: Pulses equal, no cyanosis. Neurovascular intact. Full, normal range of motion. Neuro: Awake and alert, GCS 15, oriented to person, place, time, and situation. Cranial nerves II-XII grossly intact. Motor strength 5/5 in all extremities. Sensory grossly intact. Cerebellar exam normal. Normal gait. Vital Signs: 18:44 BP 135 / 64; Pulse 102; Resp 17; Temp 98.7(TE); Pulse Ox 96% on R/A; Weight 74.84 kg; ss Height 5 ft. 8 in. (172.72 cm); Pain 6/10; 20:09 BP 139 / 72; Pulse 83; Resp 16; Pulse Ox 99% ; rr5 21:00 BP 132 / 88; Pulse 68; Resp 18; Pulse Ox 96% on R/A; wh 18:44 Body Mass Index 25.09 (74.84 kg, 172.72 cm) ss MDM: 19:01 Patient medically screened. ma2 20:22 Differential Diagnosis: Bronchitis Influenza Upper Respiratory Infection Sinusitis ma2 Pharyngitis. Data reviewed: vital signs, nurses notes. Counseling: I had a detailed discussion with the patient and/or guardian regarding: the historical points, exam findings, and any diagnostic results supporting the discharge/admit diagnosis, the presence of at least one elevated blood pressure reading (>120/80) during this emergency department visit, the need for outpatient follow up. Response to treatment: the patient's symptoms have markedly improved after treatment. ED course: pneumonia on cxr failed outpatient Rx, he has no clinical dvt or pe he is wells score low risk, he also on warfarin and his inr is elevated today, no active bleeding, discussed with Сергей . 05/28 19:09 Order name: Blood Culture Adult (2) [facility] 05/28 19:09 Order name: BMP [facility] 05/28 19:09 Order name: CBC with Diff [facility] 05/28 19:09 Order name: Ckmb; Complete Time: 20:19 [facility] 05/28 19:09 Order name: CPK; Complete Time: 20:19 [facility] 05/28 19:09 Order name: D-Dimer; Complete Time: 20:02 [facility] 05/28 19:09 Order name: Hepatic Function; Complete Time: 20:19 [facility] 05/28 19:09 Order name: Lipase; Complete Time: 20:19 [facility] 05/28 19:09 Order name: Magnesium; Complete Time: 20:19 [facility] 05/28 19:09 Order name: NT PRO-BNP; Complete Time: 20:19 [facility] 05/28 19:09 Order name: PT-INR; Complete Time: 20:02 [facility] 05/28 19:09 Order name: Ptt, Activated; Complete Time: 20:02 [facility] 05/28 19:09 Order name: Troponin (emerg Dept Use Only); Complete Time: 20:19 [facility] 05/28 19:10 Order name: Blood Culture [facility] 05/28 19:10 Order name: Basic Metabolic Panel; Complete Time: 20:19 [facility] 05/28 19:10 Order name: CBC with Automated Diff EDDE 05/28 19:44 Order name: Manual Differential EDMS 05/28 20:22 Order name: COVID-19 ne2 05/28 23:07 Order name: SARS-COV-2 RT PCR EDMS 05/29 00:22 Order name: Troponin I EDMS 05/29 03:43 Order name: CBC with Automated Diff EDMS 05/29 03:50 Order name: Protime (+INR) EDMS 05/29 03:50 Order name: Urinalysis EDMS 05/29 04:04 Order name: Comprehensive Metabolic Panel EDMS 05/29 04:04 Order name: Troponin I EDMS 05/29 04:04 Order name: Lipid Profile EDMS 05/29 04:04 Order name: T4 Free [facility] 05/29 04:04 Order name: Magnesium [facility] 05/29 04:04 Order name: Thyroid Stimulating Hormone [facility] 05/29 04:22 Order name: Urine Microscopic Only [facility] 05/28 19:09 Order name: XRAY CXR (1 view) [facility] 05/28 19:09 Order name: EKG; Complete Time: 19:10 [facility] 05/28 19:09 Order name: Cardiac monitoring; Complete Time: 19:38 [facility] 05/28 19:09 Order name: EKG - Nurse/Tech; Complete Time: 19:38 [facility] 05/28 19:09 Order name: IV Saline Lock; Complete Time: 19:38 [facility] 05/28 19:09 Order name: Labs collected and sent; Complete Time: 19:38 [facility] 05/28 19:09 Order name: O2 Per Protocol; Complete Time: 19:38 [facility] 05/28 19:09 Order name: O2 Sat Monitoring; Complete Time: 19:38 [facility] 05/29 08:15 Order name: US [facility] Administered Medications: 19:33 Drug: NS 0.9% 1000 ml Route: IV; Rate: 125 ml/hr; Site: right antecubital; 21:10 Follow up: Response: No adverse reaction; IV Status: Infusion continued upon admission 19:35 Drug: Rocephin - (cefTRIAXone) 1 grams Route: IVPB; Infused Over: 30 mins; Site: right antecubital; 21:10 Follow up: Response: No adverse reaction; IV Status: Completed infusion 19:37 Drug: AZITHromycin 500 mg Route: IVPB; Infused Over: 1 hrs; Site: right antecubital; 21:10 Follow up: Response: No adverse reaction; IV Status: Completed infusion Disposition: 05/28/20 20:26 Hospitalization ordered by Kevin Walters for Inpatient Admission. Preliminary diagnosis is Pneumonia due to other infectious organisms, not elsewhere classified. - Bed requested for Telemetry/MedSurg (Inpatient). - Status is Inpatient Admission. dm5 - Condition is Stable. - Problem is new. - Symptoms are unchanged. Signatures: Dispatcher [facility] Tessa Hankins RN RN dm5 Katie Briscoe RN RN ss Сергей Troy, MANAGER STORE-C MANAGER STORE-Cla[facility] Suki Croft, RN RN tl1 Rosalba Darden, RN RN cg Nahomi Talley Mohammad, MD MD ma2 Corrections: (The following items were deleted from the chart) 20:52 20:26 Hospitalization Ordered by Dayton Conroy MD for Inpatient Admission. Preliminary cg diagnosis is Pneumonia due to other infectious organisms, not elsewhere classified. Bed requested for Telemetry/MedSurg (Inpatient). Status is Inpatient Admission. Condition is Stable. Problem is new. Symptoms are unchanged. ma2 21:12 20:52 05/28/2020 20:26 Hospitalization Ordered by Dayton Conroy MD for Inpatient la1 Admission. Preliminary diagnosis is Pneumonia due to other infectious organisms, not elsewhere classified. Bed requested for [facility] ER HOLD. Status is Inpatient Admission. Condition is Stable. Problem is new. Symptoms are unchanged. cg 05/29 20:57 05/28 21:12 05/28/2020 20:26 Hospitalization Ordered by Kevin Walters for Inpatient tl1 Admission. Preliminary diagnosis is Pneumonia due to other infectious organisms, not elsewhere classified. Bed requested for [facility] ER HOLD. Status is Inpatient Admission. Condition is Stable. Problem is new. Symptoms are unchanged. la1 05/29 23:19 20:57 05/28/2020 20:26 Hospitalization Ordered by Kevin Walters for Inpatient dm5 Admission. Preliminary diagnosis is Pneumonia due to other infectious organisms, not elsewhere classified. Bed requested for Telemetry/MedSurg (Inpatient). Status is Inpatient Admission. Condition is Stable. Problem is new. Symptoms are unchanged. tl1
[2020-05-28 20:54] LABS: Blood Morphology Comment NOT SEEN (NOT SEEN); Platelet Estimate ADEQ
--- NOTE | 2020-05-28 20:59 | RAD REPORT ---
EXAM DESCRIPTION: [place] Single View05/28/2020 8:13 pm CLINICAL HISTORY: Cough COMPARISON: 2012 FINDINGS: Moderate left upper lobe consolidation Right lung appears clear of acute infiltrate The heart is mildly enlarged IMPRESSION: Left upper lobe pneumonia. This should be followed until it is clear to help exclude pos t obstructive process/underlying mass
--- NOTE | 2020-05-28 21:15 | P.HP ---
Certification for Inpatient Patient admitted to: Inpatient With expected LOS: >2 Midnights Patient will require the following post-hospital care: None Practitioner: I am a practitioner with admitting privileges, knowledge of patient current condition, hospital course, and medical plan of care. Services: Services provided to patient in accordance with Admission requirements found in Title 42 Section 412.3 of the Code of Federal Regulations <Сергей Troy - Last Filed: 05/28/20 21:05> Patient History Date of Service: 05/28/20 Primary Care Provider: Dr. Lundberg, nephrology- Dr. Hampton Reason for admission: Pneumonia History of Present Illness: 81-year-old male with history of CAD, atrial fibrillation on chronic anticoagulation therapy with Coumadin, hypertension, hyperlipidemia presents to the emergency department for lethargy, fevers, cough. Patient reports that he was seen at [facility] on 05/24/2020 and diagnosed with pneumonia. Patient was prescribed Augmentin and Zithromax which she has been taking since then, patient reports that symptoms have not improved since then. Patient was evaluated in the emergency department and found to have a left upper lobe pneumonia. White blood cell count 10.6, hemoglobin 11.9, hematocrit 35.4. Patient's INR is supratherapeutic 7.48. Patient's creatinine 2.62, patient states his normal creatinine is around 2.25 so there is some mild acute kidney injury. Patient's current GFR 23 last available for review is from back in 2012 when his GFR was 34. Patient reports that he has had renal stenting performed with a doctor Corey be [facility]. Patient's liver function tests abnormal with AST 178, ALT 159, alk-phos 215, T. bili 1.1, d bili 0.5. Lipase within normal limits 181. Patient was seen and examined, patient is without any complaint of abdominal pain or any abdominal tenderness at all on exam. ED provider wishes to admit patient for further evaluation and management. When I saw the patient in the emergency department he was awake, alert, oriented x3. Discussed lab findings and plan of care with patient who was amendable. Discussed code status, patient is DNR, this was discussed with patient and son. - Past Medical/Surgical History -: Chronic kidney disease stage 4 -: Atrial fibrillation on chronic anticoagulation therapy-Coumadin -: Hypertension -: Hyperlipidemia -: CAD with prior stenting -: Heart stents -: Right rotator cuff -: Multiple renal stents Psychosocial/ Personal History: Patient is retired and lives with his family - Family History Mother -: Cancer Notes: Lung Brother -: Heart disease Notes: CAD - Social History Smoking Status: Never smoker Alcohol use: No CD- Drugs: No Caffeine use: Yes Place of Residence: Home <TaligavinСергей - Last Filed: 05/28/20 21:05> Date of Service: 05/29/20 <corie elena - Last Filed: 05/29/20 10:56> Allergies No Known Allergies Allergy (Unverified 05/28/20 22:24) Home Medications: Allopurinol 0.5 tab PO DAILY 05/29/20 Atorvastatin Calcium 40 mg PO BEDTIME 05/29/20 Doxazosin [Cardura] 4 mg PO BID 05/29/20 Oxybutynin Chloride [Oxybutynin Chloride ER] 5 mg PO DAILY PRN 05/29/20 Warfarin Sodium 5 mg PO DAILY 05/29/20 Review of Systems 10-point ROS is otherwise unremarkable Respiratory: Cough, Shortness of Breath, Sputum <Сергей Troy - Last Filed: 05/28/20 21:05> Physical Examination - Physical Exam General: Alert, In no apparent distress, Oriented x3 HEENT: Atraumatic, Normocephalic, PERRLA, Other (Mucous membranes dry) Neck: Supple Respiratory: Clear to auscultation bilaterally, Diminished (Left upper lobe) Cardiovascular: Irregular heart rate/rhythm (Atrial fibrillation, rate controlled) Capillary refill: <2 Seconds Gastrointestinal: Normal bowel sounds, Soft and benign, Non-distended, No ascites, No tenderness, No masses, No rebound, No guarding Musculoskeletal: No contractures, No erythema, No tenderness Integumentary: No tenderness/swelling, No erythema, No warmth Neurological: Normal speech, Normal strength at 5/5 x4 extr, Normal tone, Sensation intact - Studies Laboratory Data (last 24 hrs) 05/28/20 19:25: PT 84.8 H, INR 7.48 H*, APTT 49.9 H 05/28/20 19:25: WBC 10.6, Hgb 11.9 L, Hct 35.4 L, Plt Count 165 05/28/20 19:25: Sodium 138, Potassium 4.5, BUN 42 H, Creatinine 2.62 H, Glucose 124 H, Magnesium 2.0, Total Bilirubin 1.1 H, AST 178 H, ALT 159 H, Alkaline Phosphatase 215 H, Lipase 181 <Сергей Troy - Last Filed: 05/28/20 21:05> - Studies Laboratory Data (last 24 hrs) 05/28/20 19:25: PT 84.8 H, INR 7.48 H*, APTT 49.9 H 05/28/20 19:25: WBC 10.6, Hgb 11.9 L, Hct 35.4 L, Plt Count 165 05/28/20 19:25: Sodium 138, Potassium 4.5, BUN 42 H, Creatinine 2.62 H, Glucose 124 H, Magnesium 2.0, Total Bilirubin 1.1 H, AST 178 H, ALT 159 H, Alkaline Phosphatase 215 H, Lipase 181 <corie elena - Last Filed: 05/29/20 10:56> Assessment and Plan - Plan Assessment Left upper lobe pneumonia-failed outpatient therapy Atrial fibrillation on chronic anticoagulation therapy with Coumadin- supratherapeutic INR NGUYỄN on CKD 4 Elevated liver function tests Hypertension Hyperlipidemia Plan Left upper lobe pneumonia-failed outpatient therapy: Blood cultures obtained, sputum culture ordered. Continue with Rocephin/Zithromax at this time. Incentive spirometry. Atrial fibrillation on chronic anticoagulation therapy with Coumadin- supratherapeutic INR: Hold Coumadin. Patient was recently on Augmentin and not eating as much as usual. Liver function tests also elevated. Will continue to monitor on telemetry. NGUYỄN on CKD 4: Patient appears dry, continue with gentle hydration. Nephrology consult in place. Elevated liver function tests: Patient without any abdominal pain, tenderness. Obtain ultrasound in the morning. Hypertension: Obtain and continue home medications. Hyperlipidemia: Obtain and continue home medications. Discharge Plan: Home Plan to discharge in: 72 Hours - Advance Directives Does patient have a Living Will: Yes Does patient have a Durable POA for Healthcare: Yes - Code Status/Comfort Care Code Status Assessed: Yes (DNR) Critical Care: No Time Spent Managing Pts Care (In Minutes): 55 <Сергей Troy - Last Filed: 05/28/20 21:05> Physician Review: Patient Assessed, Agree with Above Assessment and Plan Physician Review Additional Text: Pneumonia that has failed outpatient treatment. Acute on chronic kidney disease stage 4 History of renal stents Plan: IV Rocephin and Zithromax. Follow blood cultures. Obtain sputum culture IV hydrate. Nephrology consult. <corie elena - Last Filed: 05/29/20 10:56>
[2020-05-28] MEDS: NA CHLORIDE 0.9% 1,000 ML IV SCH (22:24)
[2020-05-28] MEDS ORDERED: ONDANSETRON 4 MG/2 ML VIAL IV PRN (22:24)
[2020-05-28] MEDS ORDERED: ACETAMINOPHEN 500 MG TAB PO PRN (22:24)
[2020-05-29] MEDS: BENZONATATE 100 MG CAP PO PRN (01:43)
[2020-05-29] MEDS ORDERED: BENZONATATE 100 MG CAP PO ONE (01:55)
[2020-05-29 03:41] LABS: Absolute Lymphocytes (CBC) 0.7 K/uL (0.7-4.9); Basophils % 0.3 % (0-1.3); Hematocrit 30.6 % (39.6-49.0); Lymphocytes % 7.3 % (15.3-44.8); MPV 9.1 fL (7.6-11.3); RBC Red Blood Cell Count 3.15 M/uL (4.33-5.43)
[2020-05-29 03:45] LABS: Urine Appearance TURBID; Urine Bilirubin NEGATIVE (NEG); Urine Blood 3+ (NEG); Urine Color RED; Urine Glucose NEGATIVE (NEG); Urine Protein 2+ (NEG); Urine Specific Gravity 1.015 (1.005-1.030)
[2020-05-29 03:49] LABS: Protime INR 6.96
[2020-05-29 03:50] LABS: Urine Microscopic Reflex ORDER UMIC
[2020-05-29 04:03] LABS: Albumin 2.4 g/dL (3.4-5.0); Bilirubin Total 0.8 mg/dL (0.2-1.0); Magnesium 2.1 mg/dL (1.8-2.4); Potassium 4.4 mmol/L (3.5-5.1); Protein, Total 6.1 g/dL (6.4-8.2); Thyroid Stimulating Hormone 1.76 uIU/mL (0.360-3.740); Troponin I 0.05 ng/mL (0.0-0.045)
[2020-05-29 04:21] LABS: Urine Bacteria <20 /HPF (NONE SEEN); Urine RBC TNTC /HPF (NONE SEEN); Urine Urothelial Cells <5 /HPF (NONE SEEN)
--- NOTE | 2020-05-29 08:15 | RAD REPORT ---
EXAM DESCRIPTION: US - Abdomen Exam Limited - 05/29/2020 7:59 am CLINICAL HISTORY: Elevated liver enzymes COMPARISON: 2018 FINDINGS: The spleen measures 11 centimeters with a normal echotexture. It contains a few granulomas . The liver is normal in size and echotexture containing granulomas. A gallstone is not seen. Gallbladder wall is not thickened. Biliary tree is normal caliber IMPRESSION: No acute abnormality displayed
[2020-05-29] MEDS ORDERED: CEFTRIAXONE/SWI 1gm 1 GM/10 ML SYR ONE (08:36)
[2020-05-29] MEDS ORDERED: NA CHLORIDE 0.9% 1,000 ML ONE (08:37)
[2020-05-29] MEDS ORDERED: CEFTRIAXONE 1 GM/NS 50 ML 1 GM/50 ML BAG IV SCH (09:00)
[2020-05-29] MEDS: AZITHROMYCIN IV 500 MG in NA CHLORIDE 0.9% 250 ML IVPB SCH (09:47)
[2020-05-29] MEDS: CEFTRIAXONE/SWI 1gm 1 GM/10 ML SYR IV SCH (09:48)
[2020-05-29] MEDS: NA CHLORIDE 0.9% 1,000 ML IV SCH ×2 (09:48→11:44)
--- NOTE | 2020-05-29 12:34 | P.PN ---
Subjective Date of Service: 05/29/20 Primary Care Provider: Dr. Lundberg, nephrology- Dr. Hampton Chief Complaint: Pneumonia Patient is coughing up yellow sputum. He states he feels better this morning. He is tolerating diet. He is also tolerating room air. Physical Examination - Vital Signs Temperature: 98.5 F Blood Pressure: 119/76 Pulse: 68 Respirations: 23 Pulse Ox (%): 96 - Physical Exam General: Alert, In no apparent distress, Oriented x3 HEENT: Mucous membr. moist/pink Neck: JVD not distended Respiratory: Normal air movement, Crackles/rales (Left lung) Cardiovascular: No edema, Normal S1 S2, Irregular heart rate/rhythm Gastrointestinal: Normal bowel sounds, Soft and benign, Non-distended, No tenderness Musculoskeletal: No swelling, No tenderness Integumentary: No rashes, No erythema Neurological: Other (Nonfocal) - Studies Laboratory Data (last 24 hrs) 05/28/20 19:25: PT 84.8 H, INR 7.48 H*, APTT 49.9 H 05/28/20 19:25: WBC 10.6, Hgb 11.9 L, Hct 35.4 L, Plt Count 165 05/28/20 19:25: Sodium 138, Potassium 4.5, BUN 42 H, Creatinine 2.62 H, Glucose 124 H, Magnesium 2.0, Total Bilirubin 1.1 H, AST 178 H, ALT 159 H, Alkaline Phosphatase 215 H, Lipase 181 Assessment And Plan - Current Problems (Diagnosis) (1) Pneumonia Current Visit: Yes Status: Acute (2) Acute worsening of stage 4 chronic kidney disease Current Visit: Yes Status: Acute (3) Chronic atrial fibrillation Current Visit: Yes Status: Acute (4) Chronic anticoagulation Current Visit: Yes Status: Acute (5) LFT elevation Current Visit: Yes Status: Acute (6) Elevated troponin Current Visit: Yes Status: Acute - Plan Continue IV Rocephin and Zithromax for community-acquired pneumonia. Continue IV hydration to treat acute renal failure. Nephrology consult Patient states his baseline creatinine is between 2.05-2.25. Serum creatinine has trended down to 2.4, not so far from base-line. Liver ultrasound result reviewed and reports no acute abnormality. Follow blood culture and sputum cultures. Continue Coumadin for AFib and monitor PT and INR. Resume other home medications. Physician Review: Patient Assessed, Agree with Above Assessment and Plan
[2020-05-29] MEDS ORDERED: OXYBUTYNIN ER 5 MG TAB PO PRN (12:38)
--- NOTE | 2020-05-29 21:43 | P.CNS ---
Date of Consult: 05/29/20 Reason for Consult: NGUYỄN/ CKD Requesting Physician: corie elena Primary Care Provider: Dr. Lundberg, nephrology- Dr. Hampton Chief Complaint: Pneumonia History of Present Illness: 81-year-old male with history of CAD, atrial fibrillation on chronic anticoagulation therapy with Coumadin, hypertension, hyperlipidemia presents to the emergency department for lethargy, fevers, cough. Patient reports that he was seen at [facility] on 05/24/2020 and diagnosed with pneumonia. Patient was prescribed Augmentin and Zithromax which she has been taking since then, patient reports that symptoms have not improved since then. Patient was evaluated in the emergency department and found to have a left upper lobe pneumonia. White blood cell count 10.6, hemoglobin 11.9, hematocrit 35.4. Patient's INR is supratherapeutic 7.48. Patient's creatinine 2.62, patient states his normal creatinine is around 2.25 so there is some mild acute kidney injury. Patient's current GFR 23 last available for review is from back in 2012 when his GFR was 34. Patient reports that he has had renal stenting performed with a doctor Corey at [facility]. Patient's liver function tests abnormal with AST 178, ALT 159, alk-phos 215, T. bili 1.1, d bili 0.5. Lipase within normal limits 181. Patient was seen and examined, patient is without any complaint of abdominal pain or any abdominal tenderness at all on exam. ED provider wishes to admit patient for further evaluation and management. 20:22 This 89 yrs old Male presents to ER via Ambulatory with complaints of ma2 Pneumonia. 20:22 The patient or guardian reports cough. Onset: The symptoms/episode began/occurred ma2 gradually, 1 week(s) ago. Severity of symptoms: At their worst the symptoms were moderate, in the emergency department the symptoms are unchanged. Associated signs and symptoms: Pertinent negatives: ear ache, fever, sore throat, vomiting. The patient has experienced a previous episode. has been having pneumonia for a week almost finished z-pack, he states his cough is worest he is feeling weaker, no improvement Allergies No Known Allergies Allergy (Unverified 05/28/20 22:24) Home medications list reviewed: Yes Home Medications: Allopurinol 0.5 tab PO DAILY 05/29/20 Atorvastatin Calcium 40 mg PO BEDTIME 05/29/20 Doxazosin [Cardura] 4 mg PO BID 05/29/20 Oxybutynin Chloride [Oxybutynin Chloride ER] 5 mg PO DAILY PRN 05/29/20 Warfarin Sodium 5 mg PO DAILY 05/29/20 - Past Medical/Surgical History Diabetic: No -: Chronic kidney disease stage 4 -: Atrial fibrillation on chronic anticoagulation therapy-Coumadin -: Hypertension -: Hyperlipidemia -: CAD with prior stenting -: Heart stents -: Right rotator cuff -: Multiple renal stents Psychosocial/ Personal History: Patient is retired and lives with his family - Family History Mother Medical History: Cancer Notes: Lung Brother Medical History: Heart disease Notes: CAD - Social History Alcohol use: No CD- Drugs: No Caffeine use: Yes Place of Residence: Home Review of Systems 10-point ROS is otherwise unremarkable General: Weakness, Malaise Respiratory: Cough, Shortness of Breath Neurological: Weakness Physical Examination Temp Pulse Resp BP Pulse Ox 98.6 F 81 19 115/89 94 05/29/20 16:00 05/29/20 16:00 05/29/20 16:00 05/29/20 16:00 05/29/20 16:00 General: In no apparent distress, Oriented x3, Cooperative HEENT: Atraumatic Neck: Supple Respiratory: Diminished Cardiovascular: No edema, Regular rate/rhythm Gastrointestinal: Soft and benign, Non-distended Musculoskeletal: No clubbing, No contractures Integumentary: No rashes, No cyanosis Neurological: Normal speech Blood work reviewed in the chart. Imagings Data: EXAM DESCRIPTION: US - Abdomen Exam Limited - 05/29/2020 7:59 am CLINICAL HISTORY: Elevated liver enzymes COMPARISON: 2017 FINDINGS: The spleen measures 11 centimeters with a normal echotexture. It contains a few granulomas. The liver is normal in size and echotexture containing granulomas. A gallstone is not seen. Gallbladder wall is not thickened. Biliary tree is normal caliber IMPRESSION: No acute abnormality displayed EXAM DESCRIPTION: [place] Single View05/28/2020 8:13 pm CLINICAL HISTORY: Cough COMPARISON: 2012 FINDINGS: Moderate left upper lobe consolidation Right lung appears clear of acute infiltrate The heart is mildly enlarged IMPRESSION: Left upper lobe pneumonia. This should be followed until it is clear to help exclude post obstructive process/underlying mass Conclusions/Impression: A/ NGUYỄN likely due to hypovolemia Hypocalcemia CKD IV with proteinuria UPJ obstruction sp stent HTN with CKD Moderate malnutrition Anemia in chronic illness Acute hepatitis JAIDEN PNA P/ Continue current POC and Medications. Gentle IVF Start Vitamin D. Continue abx. No NSAIDs. AM labs. Daily weight. Thank you kindly for the consultation.
[2020-05-29] MEDS: DOXAZOSIN 4 MG TAB PO SCH (21:45)
[2020-05-29] MEDS: ASCORBIC ACID 500 MG TABLET PO SCH (22:00)
[2020-05-29] MEDS: ATORVASTATIN 40 MG TAB PO SCH (22:45)
[2020-05-29] MEDS ORDERED: ASCORBIC ACID 500 MG TABLET ONE (22:56)
[2020-05-29 23:24] VITALS: BMI 24.9
[2020-05-30] MEDS: MELATONIN 5 MG TABLET PO PRN ×2 (00:52→23:03)
[2020-05-30] MEDS: BENZONATATE 100 MG CAP PO PRN (01:00)
[2020-05-30] MEDS: NA CHLORIDE 0.9% 1,000 ML IV SCH ×4 (01:04→21:53)
[2020-05-30 04:17] LABS: Absolute Lymphocytes (CBC) 0.6 K/uL (0.7-4.9); Basophils % 0.5 % (0-1.3); Hematocrit 30.6 % (39.6-49.0); Lymphocytes % 6.9 % (15.3-44.8); MPV 8.8 fL (7.6-11.3); RBC Red Blood Cell Count 3.15 M/uL (4.33-5.43)
[2020-05-30 04:38] LABS: Protime INR 7.41
[2020-05-30 04:41] LABS: Albumin 2.3 g/dL (3.4-5.0); Bilirubin Total 0.9 mg/dL (0.2-1.0); Phosphorus 2.7 mg/dL (2.5-4.9); Protein, Total 5.9 g/dL (6.4-8.2)
--- NOTE | 2020-05-30 06:10 | EKG ---
Test Date: 2020-05-28 Test Time: 19:22:43 Estimator Project Manager: RR MEASUREMENT RESULTS: Intervals: Rate: 80 [place]: QRSD: 132 QT: 402 QTc: 463 [place]: P: [place]: QRS: 98 T: 2 INTERPRETIVE STATEMENTS: Atrial fibrillation Right bundle branch block Abnormal ECG Compared to ECG 10/28/2012 09:55:48 Right bundle-branch block now present Electronically Signed On 05-30-20 06:09:12 PARCEL POST CLERK by Mal Shelton
[2020-05-30] MEDS: DOXAZOSIN 4 MG TAB PO SCH ×2 (09:00→21:53)
[2020-05-30] MEDS ORDERED: WARFARIN SODIUM 5 MG TAB PO SCH (09:00)
[2020-05-30] MEDS: DOCUSATE NA 100 MG CAP PO SCH ×2 (09:46→21:53)
[2020-05-30] MEDS: VITAMIN D 5,000 UNIT CAP PO SCH (09:47)
[2020-05-30] MEDS: AZITHROMYCIN IV 500 MG in NA CHLORIDE 0.9% 250 ML IVPB SCH (09:47)
[2020-05-30] MEDS: ASCORBIC ACID 500 MG TABLET PO SCH ×2 (09:47→21:53)
[2020-05-30] MEDS: CEFTRIAXONE/SWI 1gm 1 GM/10 ML SYR IV SCH (09:47)
[2020-05-30] MEDS: allopurinoL 100 MG TAB PO SCH (09:48)
[2020-05-30] MEDS ORDERED: DOXAZOSIN 2 MG TAB ONE (09:48)
[2020-05-30] MEDS ORDERED: VITAMIN K (ADULT) 10 MG/ML IVP ONE (10:34)
--- NOTE | 2020-05-30 12:20 | P.PN ---
Subjective Date of Service: 05/30/20 Primary Care Provider: Dr. Lundberg, nephrology- Dr. Hampton Chief Complaint: Pneumonia Patient reports feeling better today. He continues to tolerate room air. He reports dark colored urine which is clearing. He reports dark colored stool this morning. Patient given history of GI bleed, source not detected by endoscopies in the past He is tolerating diet. INR is elevated to 7. Physical Examination - Vital Signs Temperature: 97.3 F Blood Pressure: 135/66 Pulse: 69 Respirations: 18 Pulse Ox (%): 93 - Physical Exam General: Alert, In no apparent distress Neck: Supple, JVD not distended Respiratory: Other (Mild bilateral rhonchi) Cardiovascular: No edema, Normal S1 S2, Irregular heart rate/rhythm Gastrointestinal: Normal bowel sounds, Soft and benign, No tenderness Musculoskeletal: No swelling, No tenderness Integumentary: No rashes, No erythema Neurological: Normal strength at 5/5 x4 extr, Other (Nonfocal) Assessment And Plan - Current Problems (Diagnosis) (1) Pneumonia Current Visit: Yes Status: Acute (2) Acute worsening of stage 4 chronic kidney disease Current Visit: Yes Status: Acute (3) Chronic atrial fibrillation Current Visit: Yes Status: Acute (4) Chronic anticoagulation Current Visit: Yes Status: Acute (5) LFT elevation Current Visit: Yes Status: Acute (6) Elevated troponin Current Visit: Yes Status: Acute (7) Hematuria Current Visit: Yes Status: Acute (8) Supratherapeutic INR Current Visit: Yes Status: Acute - Plan Continue IV Rocephin and Zithromax for community-acquired pneumonia. Continue IV hydration to treat acute renal failure. Review INR with vitamin K. Monitor PT and INR. Continue to hold Coumadin. Nephrology input appreciated. Patient states his baseline creatinine is between 2.05-2.25. Serum creatinine almost back to baseline. Serum creatinine has trended down to 2.4, not so far from base-line. LFT levels are fluctuating. Liver ultrasound result reviewed and reports no acute abnormality. Sputum culture: Normal respiratory . Blood culture: No growth to date. Continue Coumadin for AFib and monitor PT and INR.
[2020-05-30] MEDS: GUAIFENESIN 600 MG SA TAB PO SCH ×2 (18:18→20:53)
--- NOTE | 2020-05-30 21:31 | P.PN ---
Date of Service: 05/30/20 Vital Signs Temp Pulse Resp BP Pulse Ox 98.4 F 72 18 139/63 95 05/30/20 16:00 05/30/20 16:00 05/30/20 16:00 05/30/20 16:00 05/30/20 16:00 Medications Acetaminophen (Tylenol -Extra Strength) 500 mg PO Q4HP PRN PRN Reason: TEMP > 100' F Stop: 06/27/20 22:25 Allopurinol (Zyloprim) 50 mg PO DAILY [facility] Stop: 06/29/20 09:01 Last Admin: 05/30/20 09:48 Dose: 50 mg Documented by: Ascorbic Acid (Vitamin C) 500 mg PO Q12HR [facility] Stop: 06/28/20 22:01 Last Admin: 05/30/20 09:47 Dose: 500 mg Documented by: Atorvastatin Calcium (Lipitor) 40 mg PO BEDTIME [facility] Stop: 06/28/20 21:01 Last Admin: 05/29/20 22:45 Dose: 40 mg Documented by: Benzonatate (Tessalon Perle) 100 mg PO TID PRN PRN Reason: COUGH Stop: 06/27/20 22:25 Last Admin: 05/30/20 01:00 Dose: 100 mg Documented by: Cholecalciferol (Vitamin D 5,000 Iu Cap) 5,000 unit PO DAILY [facility] Stop: 06/29/20 09:01 Last Admin: 05/30/20 09:47 Dose: 5,000 unit Documented by: Docusate Sodium (Colace Cap) 100 mg PO BID [facility] Stop: 06/29/20 09:01 Last Admin: 05/30/20 09:46 Dose: 100 mg Documented by: Doxazosin Mesylate (Cardura) 4 mg PO BID [facility] Stop: 06/28/20 21:01 Last Admin: 05/30/20 09:00 Dose: Not Given Documented by: Guaifenesin (Mucinex 600mg) 600 mg PO BID [facility] Stop: 06/29/20 18:16 Last Admin: 05/30/20 20:53 Dose: Not Given Documented by: Sodium Chloride (Ns 1000 Ml Ivbag) 1,000 mls @ 75 mls/hr IV .[id number] [facility] Stop: 06/27/20 22:25 Last Admin: 12/02/20 14:24 Dose: Not Given Documented by: Azithromycin 500 mg/ Sodium (Chloride) 250 mls @ 250 mls/hr IVPB DAILY [facility]; Protocol Stop: 06/28/20 09:01 Last Admin: 05/30/20 09:47 Dose: 250 mls Documented by: Ceftriaxone Sodium/Sodium Chloride (Rocephin 1 Gm/10 Ml Swi Ivp) 1 gm in 10 mls @ 600 mls/hr IV DAILY [facility] Stop: 06/28/20 09:01 Last Admin: 05/30/20 09:47 Dose: 10 mls Documented by: Melatonin (Melatonin) 5 mg PO BEDTIME PRN PRN PRN Reason: insomia Stop: 06/29/20 00:14 Last Admin: 05/30/20 00:52 Dose: 5 mg Documented by: Ondansetron HCl (Zofran) 4 mg IV Q6HP PRN PRN Reason: NAUSEA / VOMITING Stop: 06/27/20 22:25 Oxybutynin Chloride (Ditropan Xl) 5 mg PO DAILY PRN PRN Reason: incontinence Stop: 06/28/20 12:39 Sodium Chloride (Normal Saline Flush) 10 ml IV BID [facility] Stop: 06/27/20 22:25 Last Admin: 05/30/20 09:00 Dose: Not Given Documented by: Microbiology Results 05/28/20 15:20 Sputum Sputum Gram Stain - Final 05/28/20 15:20 Sputum Culture & Sensitivity - Preliminary 05/28/20 19:40 Blood - Blood Aerobic Blood Culture - Preliminary No growth in 24 hours. 05/28/20 19:40 Blood - Blood Anaerobic Blood Culture - Preliminary No growth in 24 hours. 05/28/20 19:25 Blood - Blood Aerobic Blood Culture - Preliminary No growth in 24 hours. 05/28/20 19:25 Blood - Blood Anaerobic Blood Culture - Preliminary No growth in 24 hours. Assessment/ Plan: Nephrology CPS improving without CP or SOB. Persistent cough with thick sputum. Dark urine. No acute events overnight. Vitals, medications, blood work and imaging reviewed in the chart. General: In no apparent distress, Oriented x3, Cooperative HEENT: Atraumatic Neck: Supple Respiratory: Diminished Cardiovascular: No edema, Regular rate/rhythm Gastrointestinal: Soft and benign, Non-distended Musculoskeletal: No clubbing, No contractures Integumentary: No rashes, No cyanosis Neurological: Normal speech Blood work reviewed in the chart. Imagings Data: EXAM DESCRIPTION: US - Abdomen Exam Limited - 05/29/2020 7:59 am CLINICAL HISTORY: Elevated liver enzymes COMPARISON: 2017 FINDINGS: The spleen measures 11 centimeters with a normal echotexture. It contains a few granulomas. The liver is normal in size and echotexture containing granulomas. A gallstone is not seen. Gallbladder wall is not thickened. Biliary tree is normal caliber IMPRESSION: No acute abnormality displayed [facility] CLINICAL HISTORY: Cough COMPARISON: 2012 FINDINGS: Moderate left upper lobe consolidation Right lung appears clear of acute infiltrate The heart is mildly enlarged IMPRESSION: Left upper lobe pneumonia. This should be followed until it is clear to help exclude post obstructive process/underlying mass. 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 Continue IVF. Start oral bicarb. Start mucinex. Continue Vitamin D. Continue abx. No NSAIDs. AM labs. Daily weight.
[2020-05-30] MEDS: ATORVASTATIN 40 MG TAB PO SCH (21:53)
[2020-05-31] MEDS: NA CHLORIDE 0.9% 1,000 ML IV SCH (03:44)
[2020-05-31 04:18] LABS: Protime INR 1.66
[2020-05-31 04:19] LABS: Absolute Lymphocytes (CBC) 0.7 K/uL (0.7-4.9); Basophils % 0.4 % (0-1.3); Hematocrit 32.5 % (39.6-49.0); Lymphocytes % 6.9 % (15.3-44.8); RBC Red Blood Cell Count 3.32 M/uL (4.33-5.43)
[2020-05-31 04:38] LABS: Potassium 4.1 mmol/L (3.5-5.1)
[2020-05-31] MEDS: SODIUM BICARB 325 MG TAB PO SCH ×3 (09:21→16:26)
[2020-05-31] MEDS: GUAIFENESIN 600 MG SA TAB PO SCH ×2 (09:21→21:00)
[2020-05-31] MEDS: DOCUSATE NA 100 MG CAP PO SCH ×2 (09:21→21:00)
[2020-05-31] MEDS: DOXAZOSIN 4 MG TAB PO SCH ×2 (09:21→21:00)
[2020-05-31] MEDS: ASCORBIC ACID 500 MG TABLET PO SCH ×2 (09:22→21:00)
[2020-05-31] MEDS: CEFTRIAXONE/SWI 1gm 1 GM/10 ML SYR IV SCH (09:22)
[2020-05-31] MEDS: allopurinoL 100 MG TAB PO SCH (09:22)
[2020-05-31] MEDS: AZITHROMYCIN IV 500 MG in NA CHLORIDE 0.9% 250 ML IVPB SCH (09:22)
[2020-05-31] MEDS: VITAMIN D 5,000 UNIT CAP PO SCH (09:22)
[2020-05-31] MEDS: CALCITROL 0.25 MCG CAP PO SCH (09:22)
--- NOTE | 2020-05-31 13:04 | P.PN ---
Subjective Date of Service: 05/31/20 Primary Care Provider: Dr. Lundberg, nephrology- Dr. Hampton Chief Complaint: Pneumonia Patient states he feels better today. His urine color has cleared from dark to fernando. He is tolerating diet. INR has been reversed to 1.6 Physical Examination - Vital Signs Temperature: 98.2 F Blood Pressure: 143/70 Pulse: 86 Respirations: 18 Pulse Ox (%): 95 - Physical Exam General: Alert, In no apparent distress Neck: Supple Respiratory: Crackles/rales (Mild crackles-left lung.) Cardiovascular: Regular rate/rhythm, Normal S1 S2, Edema (Bilateral legs) Gastrointestinal: Normal bowel sounds, Soft and benign, No tenderness Musculoskeletal: No tenderness Integumentary: No rashes, No erythema Neurological: Other (Nonfocal) - Studies Microbiology Data (last 24 hrs): 05/28/20 15:20 Sputum Sputum Gram Stain - Final 05/28/20 15:20 Sputum Culture & Sensitivity - Final Assessment And Plan - Current Problems (Diagnosis) (1) Pneumonia Current Visit: Yes Status: Acute (2) Acute worsening of stage 4 chronic kidney disease Current Visit: Yes Status: Acute (3) Chronic atrial fibrillation Current Visit: Yes Status: Acute (4) Chronic anticoagulation Current Visit: Yes Status: Acute (5) LFT elevation Current Visit: Yes Status: Acute (6) Elevated troponin Current Visit: Yes Status: Acute (7) Hematuria Current Visit: Yes Status: Acute (8) Supratherapeutic INR Current Visit: Yes Status: Acute - Plan Continue IV antibiotics Renal function has improved to baseline with IV fluid. INR adequately reversed. Resume Coumadin Monitor PT and INR. Nephrology is following. LFT levels are fluctuating. Recheck LFT in a.m. Liver ultrasound: no abnormality detected. Sputum culture: Normal respiratory . Blood culture: No growth to date. Continue current treatment for 1 more day, reassess tomorrow for possible discharge if he continues to improve.
--- NOTE | 2020-05-31 21:01 | P.PN ---
Date of Service: 05/31/20 Vital Signs Temp Pulse Resp BP Pulse Ox 98.3 F 59 18 141/60 H 94 05/31/20 16:00 05/31/20 16:00 05/31/20 16:00 05/31/20 16:00 05/31/20 16:00 Medications Acetaminophen (Tylenol -Extra Strength) 500 mg PO Q4HP PRN PRN Reason: TEMP > 100' F Stop: 06/27/20 22:25 Allopurinol (Zyloprim) 50 mg PO DAILY [facility] Stop: 06/29/20 09:01 Last Admin: 05/31/20 09:22 Dose: 50 mg Documented by: Ascorbic Acid (Vitamin C) 500 mg PO Q12HR [facility] Stop: 06/28/20 22:01 Last Admin: 05/31/20 09:22 Dose: 500 mg Documented by: Benzonatate (Tessalon Perle) 100 mg PO TID PRN PRN Reason: COUGH Stop: 06/27/20 22:25 Last Admin: 05/30/20 01:00 Dose: 100 mg Documented by: Calcitriol (Rocaltrol) 0.5 mcg PO DAILY [facility] Stop: 06/30/20 09:01 Last Admin: 05/31/20 09:22 Dose: 0.5 mcg Documented by: Cholecalciferol (Vitamin D 5,000 Iu Cap) 5,000 unit PO DAILY [facility] Stop: 06/29/20 09:01 Last Admin: 05/31/20 09:22 Dose: 5,000 unit Documented by: Docusate Sodium (Colace Cap) 100 mg PO BID [facility] Stop: 06/29/20 09:01 Last Admin: 05/31/20 09:21 Dose: 100 mg Documented by: Doxazosin Mesylate (Cardura) 4 mg PO BID [facility] Stop: 06/28/20 21:01 Last Admin: 05/31/20 09:21 Dose: 4 mg Documented by: Guaifenesin (Mucinex 600mg) 600 mg PO BID [facility] Stop: 06/29/20 18:16 Last Admin: 05/31/20 09:21 Dose: 600 mg Documented by: Azithromycin 500 mg/ Sodium (Chloride) 250 mls @ 250 mls/hr IVPB DAILY [facility]; Protocol Stop: 06/28/20 09:01 Last Admin: 12/03/20 09:22 Dose: 250 mls Documented by: Ceftriaxone Sodium/Sodium Chloride (Rocephin 1 Gm/10 Ml Swi Ivp) 1 gm in 10 mls @ 600 mls/hr IV DAILY [facility] Stop: 06/28/20 09:01 Last Admin: 05/31/20 09:22 Dose: 10 mls Documented by: Melatonin (Melatonin) 5 mg PO BEDTIME PRN PRN PRN Reason: insomia Stop: 06/29/20 00:14 Last Admin: 05/30/20 23:03 Dose: 5 mg Documented by: Ondansetron HCl (Zofran) 4 mg IV Q6HP PRN PRN Reason: NAUSEA / VOMITING Stop: 06/27/20 22:25 Oxybutynin Chloride (Ditropan Xl) 5 mg PO DAILY PRN PRN Reason: incontinence Stop: 06/28/20 12:39 Sodium Bicarbonate (Sodium Bicarb 325 Mg) 325 mg PO TIDWM [facility] Stop: 06/30/20 08:01 Last Admin: 05/31/20 16:26 Dose: 325 mg Documented by: Sodium Chloride (Normal Saline Flush) 10 ml IV BID [facility] Stop: 06/27/20 22:25 Last Admin: 05/31/20 09:00 Dose: Not Given Documented by: Warfarin Sodium (Coumadin) 3 mg PO DAILY 5 PM [facility] Stop: 07/01/20 17:01 Microbiology Results 05/28/20 15:20 Sputum Sputum Gram Stain - Final 05/28/20 15:20 Sputum Culture & Sensitivity - Final 05/28/20 19:40 Blood - Blood Aerobic Blood Culture - Preliminary No growth in 24 hours. 05/28/20 19:40 Blood - Blood Anaerobic Blood Culture - Preliminary No growth in 24 hours. 05/28/20 19:25 Blood - Blood Aerobic Blood Culture - Preliminary No growth in 24 hours. 05/28/20 19:25 Blood - Blood Anaerobic Blood Culture - Preliminary No growth in 24 hours. Assessment/ Plan: Nephrology CPS improving without CP or SOB. Feeling better. More strength this morning. No acute events overnight. Vitals, medications, blood work and imaging reviewed in the chart. General: In no apparent distress, Oriented x3, Cooperative HEENT: Atraumatic Neck: Supple Respiratory: Diminished Cardiovascular: No edema, Regular rate/rhythm Gastrointestinal: Soft and benign, Non-distended Musculoskeletal: No clubbing, No contractures Integumentary: No rashes, No cyanosis Neurological: Normal speech Blood work reviewed in the chart. Imagings Data: EXAM DESCRIPTION: US - Abdomen Exam Limited - 05/29/2020 7:59 am CLINICAL HISTORY: Elevated liver enzymes COMPARISON: 2018 FINDINGS: The spleen measures 11 centimeters with a normal echotexture. It contains a few granulomas. The liver is normal in size and echotexture containing granulomas. A gallstone is not seen. Gallbladder wall is not thickened. Biliary tree is normal caliber IMPRESSION: No acute abnormality displayed [facility] CLINICAL HISTORY: Cough COMPARISON: 2012 FINDINGS: Moderate left upper lobe consolidation Right lung appears clear of acute infiltrate The heart is mildly enlarged IMPRESSION: Left upper lobe pneumonia. This should be followed until it is clear to help exclude post obstructive process/underlying mass. 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 Hold IVF. Continue oral bicarb. Continue abx. Hold Lipitor due to elevated LFTs. Encourage nutrition/ hydration. No NSAIDs. AM labs. Daily weight.
[2020-05-31] MEDS: MELATONIN 5 MG TABLET PO PRN (22:25)
[2020-05-31] MEDS ORDERED: DOXAZOSIN 2 MG TAB ONE (22:29)
[2020-06-01 05:55] LABS: Absolute Lymphocytes (CBC) 0.7 K/uL (0.7-4.9); Basophils % 0.4 % (0-1.3); Hematocrit 32.2 % (39.6-49.0); Lymphocytes % 6.8 % (15.3-44.8); MPV 8.7 fL (7.6-11.3); RBC Red Blood Cell Count 3.33 M/uL (4.33-5.43)
[2020-06-01 06:06] LABS: Albumin 2.3 g/dL (3.4-5.0); Potassium 4.4 mmol/L (3.5-5.1); Protein, Total 6.7 g/dL (6.4-8.2); Protime INR 1.49
[2020-06-01] MEDS ORDERED: DOXAZOSIN 2 MG TAB ONE (08:24)
[2020-06-01 08:27] LABS: Blood Morphology Comment NOT SEEN (NOT SEEN); Platelet Estimate ADEQ; White Blood Cell Scan 0 (OK)
[2020-06-01] MEDS: SODIUM BICARB 325 MG TAB PO SCH (08:32)
[2020-06-01] MEDS: AZITHROMYCIN IV 500 MG in NA CHLORIDE 0.9% 250 ML IVPB SCH (08:32)
[2020-06-01] MEDS: CEFTRIAXONE/SWI 1gm 1 GM/10 ML SYR IV SCH (08:32)
[2020-06-01] MEDS: VITAMIN D 5,000 UNIT CAP PO SCH (08:34)
[2020-06-01] MEDS: ASCORBIC ACID 500 MG TABLET PO SCH (08:34)
[2020-06-01] MEDS: CALCITROL 0.25 MCG CAP PO SCH (08:34)
[2020-06-01] MEDS: GUAIFENESIN 600 MG SA TAB PO SCH (08:34)
[2020-06-01] MEDS: allopurinoL 100 MG TAB PO SCH (08:34)
[2020-06-01] MEDS: DOCUSATE NA 100 MG CAP PO SCH (08:35)
[2020-06-01] MEDS: DOXAZOSIN 4 MG TAB PO SCH (09:00)
--- NOTE | 2020-06-01 11:38 | P.DS ---
Admission Date: 05/28/20 Discharge Date: 06/01/20 Primary Care Provider: Dr. Lundberg, nephrology- Dr. Hampton Disposition: ROUTINE DISCHARGE Discharge Condition: FAIR Reason for Admission: Pneumonia - Problems (1) Pneumonia Current Visit: Yes Status: Acute (2) Acute worsening of stage 4 chronic kidney disease Current Visit: Yes Status: Acute (3) Chronic atrial fibrillation Current Visit: Yes Status: Acute (4) Chronic anticoagulation Current Visit: Yes Status: Acute (5) LFT elevation Current Visit: Yes Status: Acute (6) Elevated troponin Current Visit: Yes Status: Acute (7) Hematuria Current Visit: Yes Status: Acute (8) Supratherapeutic INR Current Visit: Yes Status: Acute Brief History of Present Illness: 89-year-old man with a history of chronic atrial fibrillation on Coumadin anticoagulation, coronary artery disease, chronic kidney disease, history of obstructive uropathy status post renal stents and presented to the emergency department with a complaint of pleural cough and shortness of breath. Patient reports he was diagnosed with pneumonia at [facility] and prescribed Augmentin and azithromycin which he took without much improvement. Chest x-ray done in the emergency department with left upper lobe pneumonia. His INR was elevated to 7. Patient did not meet criteria for sepsis. He was admitted for further management. Hospital Course: Patient admitted to the medical floor and treated with IV Rocephin and Zithromax for community-acquired pneumonia. He tested negative for COVID 19. Patient was coughing up yellow sputum. His renal function was also elevated above normal. Nephrology was consulted, patient was seen and evaluated by Dr. Hampton. Dr. Hampton recommended IV hydration. His serum creatinine returned to baseline and IV fluid discontinued. He has clinically improved with treatment. He will need to continue antibiotics to complete at least 7 days of treatment. He is prescribed Levaquin on discharge. His INR was supratherapeutic. Patient developed hematuria and dark colored stool. INR was reversed with IV vitamin K. current value is 1.49. Coumadin is resumed at 3 mg daily given significant interaction with Levaquin. He will need his INR checked on 06/04/2020 for Coumadin dose adjustment. Vital Signs/Physical Exam: Temp Pulse Resp BP Pulse Ox 97.9 F 79 16 129/74 98 06/01/20 08:00 06/01/20 08:33 06/01/20 08:00 06/01/20 08:33 06/01/20 08:00 General: Alert, In no apparent distress Neck: Supple, JVD not distended Respiratory: Crackles/rales (Left lung) Cardiovascular: Normal S1 S2, Edema (1+ bilateral pitting pedal edema.), Irregular heart rate/rhythm Gastrointestinal: Normal bowel sounds, Soft and benign, No tenderness Musculoskeletal: No tenderness Integumentary: No rashes, No erythema Neurological: Normal strength at 5/5 x4 extr, Other (Nonfocal) Laboratory Data at Discharge: WBC 9.6 K/uL (4.3-10.9) 06/01/20 05:24 Hgb 11.1 g/dL (13.6-17.9) L 06/01/20 05:24 Hct 32.2 % (39.6-49.0) L 06/01/20 05:24 Plt Count 244 K/uL (152-406) D 06/01/20 05:24 PT 17.4 SECONDS (9.5-12.5) H 06/01/20 05:24 INR 1.49 06/01/20 05:24 APTT 49.9 SECONDS (24.3-36.9) H 05/28/20 19:25 Sodium 141 mmol/L (136-145) 06/01/20 05:24 Potassium 4.4 mmol/L (3.5-5.1) 06/01/20 05:24 BUN 32 mg/dL (7-18) H 06/01/20 05:24 Creatinine 2.03 mg/dL (0.55-1.3) H 06/01/20 05:24 Glucose 105 mg/dL (74-106) 06/01/20 05:24 Uric Acid 7.0 mg/dL (3.5-7.2) 05/30/20 04:00 Phosphorus 2.7 mg/dL (2.5-4.9) 05/30/20 04:00 Magnesium 2.0 mg/dL (1.8-2.4) 05/30/20 04:00 Total Bilirubin 1.0 mg/dL (0.2-1.0) 06/01/20 05:24 AST 145 U/L (15-37) H 12/04/20 05:24 ALT 150 U/L (12-78) H 06/01/20 05:24 Alkaline Phosphatase 207 U/L (45-117) H 06/01/20 05:24 Troponin I 0.05 ng/mL (0.0-0.045) H 05/29/20 03:12 Triglycerides 60 mg/dL (<150) 05/29/20 03:12 Cholesterol 69 mg/dL (<200) 05/29/20 03:12 HDL Cholesterol 29 mg/dL (40-60) L 05/29/20 03:12 Cholesterol/HDL Ratio 2.38 05/29/20 03:12 Lipase 181 U/L (73-393) 05/28/20 19:25 Home Medications: Allopurinol 0.5 tab PO DAILY 05/29/20 Atorvastatin Calcium 40 mg PO BEDTIME 05/29/20 Doxazosin [Cardura*] 4 mg PO BID 05/29/20 Oxybutynin Chloride [Oxybutynin Chloride ER] 5 mg PO DAILY PRN 05/29/20 Ascorbic Acid [Vitamin C*] 500 mg PO Q12HR #60 tablet 06/01/20 Benzonatate [Tessalon Perle*] 100 mg PO TID PRN #30 cap 06/01/20 Calcitrol [Rocaltrol*] 0.5 mcg PO DAILY #30 cap 06/01/20 Cholecalciferol (Vitamin D3) [Vitamin D 5,000 IU Cap*] 5,000 unit PO DAILY #30 cap 06/01/20 Docusate [Colace Cap*] 100 mg PO BID #60 cap 06/01/20 Guaifenesin [Mucinex] 600 mg PO Q12H #20 tab.er.12h 06/01/20 Melatonin 5 mg PO BEDTIME PRN PRN #30 tablet 06/01/20 Na Bicarb Tab [Sodium Bicarb 325 MG Tab*] 325 mg PO TIDWM #90 tab 06/01/20 Warfarin Sodium [Coumadin*] 3 mg PO DAILY 5 PM #7 tab 06/01/20 levoFLOXacin [Levaquin] 500 mg PO DAILY #7 tab 06/01/20 New Medications: Ascorbic Acid [Vitamin C*] 500 mg PO Q12HR #60 tablet Docusate [Colace Cap*] 100 mg PO BID #60 cap Warfarin Sodium [Coumadin*] 3 mg PO DAILY 5 PM #7 tab levoFLOXacin [Levaquin] 500 mg PO DAILY #7 tab Melatonin 5 mg PO BEDTIME PRN PRN #30 tablet PRN Reason: insomia Guaifenesin [Mucinex] 600 mg PO Q12H #20 tab.er.12h Calcitrol [Rocaltrol*] 0.5 mcg PO DAILY #30 cap Na Bicarb Tab [Sodium Bicarb 325 MG Tab*] 325 mg PO TIDWM #90 tab Benzonatate [Tessalon Perle*] 100 mg PO TID PRN #30 cap PRN Reason: Cough Cholecalciferol (Vitamin D3) [Vitamin D 5,000 IU Cap*] 5,000 unit PO DAILY #30 cap Diet: AHA Activity: Ad venancio Followup: Wilfred Hampton DO [ACTIVE - CAN ADMIT] - 1-2 Weeks Shan Ro MD [Primary Care Provider] - 1 Week Time spent managing pt's care (in minutes): 40
[2020-06-01 11:57] VITALS: BP 121/60; TEMP 97.4
[2020-06-01 12:53] VITALS: O2SAT 94
[2020-06-01] MEDS ORDERED: WARFARIN SODIUM 3 MG TAB PO SCH (17:00)
[2020-06-06 19:37] LABS: HBsAG Nonreactive (Nonreactive)
== END 2020-06-01 12:16 | disposition home or self-care (01) | DRG 194 ==
LOC: ER 18:25 → ERHOLD 20:52 → 2ND 05-29 22:49
PROVIDERS: ADMIT Hospitalist; ATTEND Internal Medicine
DX: J18.9 Pneumonia, unspecified organism (principal); N17.9 Acute kidney failure, unspecified; N18.4 Chronic kidney disease, stage 4 (severe); I48.20 Chronic atrial fibrillation, unspecified; E44.0 Moderate protein-calorie malnutrition; B17.9 Acute viral hepatitis, unspecified; E83.51 Hypocalcemia; I12.9 Hypertensive chronic kidney disease with stage 1 through stage 4 chronic kidney disease, or unspecified chronic kidney disease; E86.1 Hypovolemia; D63.8 Anemia in other chronic diseases classified elsewhere; E78.5 Hyperlipidemia, unspecified; I25.2 Old myocardial infarction; I25.10 Atherosclerotic heart disease of native coronary artery without angina pectoris; R79.89 Other specified abnormal findings of blood chemistry; R31.9 Hematuria, unspecified; R79.1 Abnormal coagulation profile; Z79.01 Long term (current) use of anticoagulants; Z66 Do not resuscitate; Z68.25 Body mass index [BMI] 25.0-25.9, adult; Z95.5 Presence of coronary angioplasty implant and graft; Z79.899 Other long term (current) drug therapy; Z96.0 Presence of urogenital implants; Z20.828 Contact with and (suspected) exposure to other viral communicable diseases
CPT/HCPCS: 36415; 71045; 76705; 80048; 80053; 80061; 80074; 80076; 81003; 81015; 82550; 82553; 83690; 83735; 83880; 84100; 84439; 84443; 84484; 84550; 85025; 85379; 85610; 85730; 87040; 87070; 87086; 87088; 87205; 93005; 94010; 96365; 99285; J0456; J0696; J3430; J7030; J7050; U0003